=== PATIENT | female | born 1980 | race Caucasian/White ===

== ENCOUNTER 2021-10-23 09:11 | Emergency (ER) | payer OTHER ==
--- NOTE | 2021-10-23 09:57 | ERPHSYRPT ---
- History of Present Illness Time Seen by Provider: 10/23/21 09:50 Source: patient Exam Limitations: no limitations Patient Subjective Stated Complaint: " I was walking up the stairs trying to get my cat and I twisted my foot and injuried it. I also fell on . Triage Nursing Assessment: . Physician History: Patient is a 41-year-old female presents to our ED for evaluation of left foot and left knee pain. Patient states that she was chasing her kittens up the stairs when she twisted her foot and knee. Injury occurred just prior to arrival. Pain described as an ache that is localized. No radiation. Pain worse with weightbearing. Pain improved with rest. No other injuries reported. No BHT or LOC. No neck pain. Cervical spine cleared clinically. Patient otherwise healthy. She voices no other complaints concerns at this time. Method of Injury: twisted Occurred: just prior to arrival Quality: aching Severity of Pain-Max: moderate Severity of Pain-Current: mild Lower Extremities Pain: knee: left, foot: left Modifying Factors: Improves With: movement Associated Symptoms: none Allergies/Adverse Reactions: sulfamethoxazole [From Bactrim] Allergy (Severe, Verified 10/23/21 09:47) trimethoprim [From Bactrim] Allergy (Severe, Verified 10/23/21 09:47) ciprofloxacin [From Cipro] Adverse Reaction (Intermediate, Verified 10/23/21 09:47) Home Medications: Buspirone HCl [Buspar] 15 mg PO BID 10/23/21 [History] Escitalopram Oxalate 10 mg [Lexapro 10 MG] 20 mg PO DAILY 10/23/21 [History] Loratadine 10 mg [Claritin 10 mg] 10 mg PO DAILY 10/23/21 [History] Metoprolol Succinate 50 mg PO HS 10/23/21 [History] Hx Tetanus, Diphtheria Vaccination/Date Given: No Hx Influenza Vaccination/Date Given: No Hx Pneumococcal Vaccination/Date Given: No Immunizations Up to Date: No Travel Risk - International Travel Have you traveled outside of the country in past 3 weeks: No - Coronavirus Screening Are you exhibiting any of the following symptoms?: No Close contact with a COVID-19 positive Pt in past 14-21 Days: No - Vaccine Status Have you recieved a Covid-19 vaccination: No - Review of Systems Constitutional: No Symptoms, No Fever, No Chills Eyes: No Symptoms Ears, Nose, & Throat: No Symptoms Respiratory: No Symptoms, No Cough, No Dyspnea Cardiac: No Symptoms, No Chest Pain, No Edema, No Syncope Abdominal/Gastrointestinal: No Symptoms, No Abdominal Pain, No Nausea, No Vomiting, No Diarrhea Genitourinary Symptoms: No Symptoms, No Dysuria Musculoskeletal: No Symptoms, No Back Pain, No Neck Pain Skin: No Symptoms, No Rash Neurological: No Symptoms, No Dizziness, No Focal Weakness, No Sensory Changes Psychological: No Symptoms Endocrine: No Symptoms Hematologic/Lymphatic: No Symptoms Immunological/Allergic: No Symptoms All Other Systems: Reviewed and Negative - Past Medical History Pertinent Past Medical History: Yes Cardiac History: Hypertension Psycho-Social History: Anxiety, Depression - Past Surgical History Past Surgical History: Yes Female Surgical History: Dilation & Curettage, Tubal Ligation - Social History Smoking Status: Current every day smoker Exposure to second hand smoke: No Drug Use: none Patient Lives Alone: Yes - Female History Hx Last Menstrual Period: 10/22/21 Hx Now: No - Nursing Vital Signs Nursing Vital Signs: Initial Vital Signs Temperature 97.7 F 10/23/21 09:42 Pulse Rate 82 10/23/21 09:42 Respiratory Rate 16 10/23/21 09:42 Blood Pressure 150/93 10/23/21 09:42 O2 Sat by Pulse Oximetry 96 10/23/21 09:42 Pain Scale Pain Intensity 8 - Physical Exam General Appearance: no apparent distress, alert Eyes, Ears, Nose, Throat Exam: moist mucous membranes Neck Exam: non-tender, supple Cardiovascular/Respiratory Exam: chest non-tender, normal breath sounds, regular rate/rhythm, no respiratory distress Gastrointestinal/Abdominal Exam: non-tender, guarding Back Exam: normal inspection, No vertebral tenderness Hips Exam: bilateral: non-tender, normal inspection, normal range of motion, no evidence of injury Legs Exam: bilateral leg: non-tender, normal inspection, normal range of motion, no evidence of injury Knees Exam: right knee: non-tender, normal inspection, normal range of motion, no evidence of injury, left knee: pain, soft tissue tenderness, other (Patient has discomfort along the anterior all lateral aspect of her left knee. Overlying soft tissue intact. No signs of trauma. Extremities neurovascular intact distally. Compartments are soft.) Ankle Exam: bilateral ankle: non-tender, normal inspection, normal range of motion, no evidence of injury Foot Exam: right foot: non-tender, normal inspection, normal range of motion, no evidence of injury, left foot: pain, soft tissue tenderness, swelling, other (Patient has tenderness to palpation on the dorsum of the left foot. There is a small area of hyperemia. No obvious swelling or deformity. Compartments are soft. Cap refill less than 2 seconds. PT DP pulse palpable.) Neuro/Tendon Exam: normal sensation, normal motor functions Mental Status Exam: alert, oriented x 3, cooperative Skin Exam: normal color, warm, dry SpO2 Interpretation: normal SpO2: 96 O2 Delivery: Room Air - Course Nursing assessment & vital signs reviewed: Yes - Radiology Exams Foot X-ray Interpretation: Teleradiologist Report (Small heel spurs and tiny cuboid accessory ossicle. No other bony or soft tissue abnormalities.) Knee X-ray Interpretation: Teleradiologist Report (2 view left knee demonstrates minimal medial joint space narrowing. No other bony articular or soft tissue abnormalities.) Ordered Tests: Active Orders 24 hr Category Date Time Status FOOT (MINIMUM 3 VIEWS) Stat Exams 10/23/21 09:59 Completed KNEE (1 OR 2 VIEW) Stat Exams 10/23/21 09:59 Completed Medication Summary Discontinued Medications Generic Name Dose Route Start Last Admin Trade Name Freq PRN Reason Stop Dose Admin Acetaminophen 975 mg 10/23/21 10:01 Acetaminophen 325 Mg Tablet PO 10/23/21 10:02 STAT ONE - Progress Progress: improved Progress Note: Patient reassessed. Pain improved. X-rays negative for fracture dislocations. No soft tissue abnormalities. We will provide patient with bilateral axillary crutches for comfort. No indication for further work-up at this time. Patient agrees to follow-up with her primary care doctor within 48 hours for reevaluation. Portions of this note were created with voice recognition technology. There may be grammatical, spelling, punctuation or sound alike errors 10/23/21 10:11 Counseled pt/family regarding: diagnosis, need for follow-up, rad results - Departure Departure Disposition: Home Clinical Impression: Foot sprain, Knee sprain Condition: Stable Critical Care Time: No Additional Instructions: Discharge/Care Plan ERNSTCITLALY was seen on 11/22/21 in the Emergency Room. The patient was counseled regarding Diagnosis,Lab results, Imaging studies, need for follow up and when to return to the Emergency Room. Prescriptions given: Discharge Note I have spoken with the patient and/or caregivers. I have explained the patient's condition, diagnosis and treatment plan based on the information available to me at this time. I have answered the patient's and/or caregiver's questions and addressed any concerns. The patient and/or caregivers have as good understanding of the patient's diagnosis, condition and treatment plan as can be expected at this point. The vital signs have been stable. The patient's condition is stable and appropriate for discharge from the emergency department. The patient will pursue further outpatient evaluation with the primary care physician or other designated or consulting physician as outlined in the d ischarge instructions. The patient and/or caregivers are agreeable to this plan of care and follow-up instructions have been explained in detail. The patient and/or caregivers have received these instruction. The patient/and or caregivers are aware that any significant change in condition or worsening of symptoms should prompt an immediate return to this or the closest emergency department or call 911.
[2021-10-23] MEDS ORDERED: TYLENOL 325 MG PO ONE (10:01)
--- NOTE | 2021-10-23 10:06 | XRAY ---
Indication: Pain following twisting injury. Comparison: None 2 view left knee demonstrates minimal medial joint space narrowing. No other bony, articular, or soft tissue abnormalities.
--- NOTE | 2021-10-23 10:08 | XRAY ---
Indication: Pain following twisting injury. Comparison: None 3 nonweightbearing views left foot demonstrates small heel spurs and tiny cuboid accessory ossicle. No other bony, articular, or soft tissue abnormalities.
[2021-10-23] MEDS ORDERED: TYLENOL 325 MG ONE (10:28)
[2021-10-23 17:11] VITALS: BP 150/93; PULSE 82; O2SAT 96
== END 2021-10-23 10:51 | disposition home or self-care (01) ==
LOC: ED 09:11
DX: S93.602A Unspecified sprain of left foot, initial encounter (principal); S83.92XA Sprain of unspecified site of left knee, initial encounter; W18.43XA Slipping, tripping and stumbling without falling due to stepping from one level to another, initial encounter; Y93.02 Activity, running; Y92.009 Unspecified place in unspecified non-institutional (private) residence as the place of occurrence of the external cause; I10 Essential (primary) hypertension; Z72.0 Tobacco use
CPT/HCPCS: 73560; 73630; 99283; A9270-GY

== ENCOUNTER 2022-01-01 14:32 | Emergency (ER) | payer OTHER ==
[2022-01-01 14:44] VITALS: O2SAT 96
[2022-01-01] MEDS ORDERED: Sodium Chloride 0.9% 1000 ML 1,000 ML IV STA ×2 (14:46)
[2022-01-01] MEDS ORDERED: Zofran 4 MG/2 ML VIAL IV ONE (14:47)
[2022-01-01] MEDS ORDERED: Zofran 4 MG/2 ML VIAL ONE (14:48)
[2022-01-01] MEDS ORDERED: Sodium Chloride 0.9% 1000 ML 2,000 ML ONE (14:49)
--- NOTE | 2022-01-01 16:08 | ERPHSYRPT ---
- History of Present Illness Historian: patient Exam Limitations: no limitations Patient Subjective Stated Complaint: " I was diagnosed with Covid on the and I have had diarrhea, nausea, and vomiting since shortly after being diagnosed with Covid. " Triage Nursing Assessment: Pt presents to ER with complaints of nausea, vomiting, or diarrhea. Pt states s/sx been present for the past couple of weeks since being dx with Covid. Pt is alert and oriented x3. Skin is pink, warm, and dry. Respirations are easy. Lungs clear thoughout. Bowel sounds present. Pt states diarrhea has been like liquid. Pt complains of continuous nausea and vomtiing when attempting to eat meals. Physician History: 41 yo wf diagnosed w CV19 on 12/23/21 presents w N/V/D. Pt still has a mild cough but denies coryza. Fever/BERRY resolved earlier in the disease process. Melena/hematochezia/hematemesis/dysuria/hematuria are all denied. Timing/Duration: other (12/23/21) Quality: other (No pain) Abdominal Pain Onset Location: other (No pain) Pain Radiation: no radiation Severity of Pain-Max: none Severity of Pain-Current: none Modifying Factors: Improves With: coughing, vomiting Associated Symptoms: diarrhea, fatigue, nausea, vomiting, weakness, No back, No chest pain, No diaphoresis, No fever/chills, No headache, No heartburn, No neck pain, No rash, No shortness of breath, No syncope Previous symptoms: no prior history Allergies/Adverse Reactions: sulfamethoxazole [From Bactrim] Allergy (Severe, Verified 01/01/22 14:44) trimethoprim [From Bactrim] Allergy (Severe, Verified 01/01/22 14:44) ciprofloxacin [From Cipro] Adverse Reaction (Intermediate, Verified 01/01/22 14:44) Home Medications: Buspirone HCl [Buspar] 15 mg PO BID 10/23/21 [History] Escitalopram Oxalate 10 mg [Lexapro 10 MG] 20 mg PO DAILY 10/23/21 [History] Loratadine 10 mg [Claritin 10 mg] 10 mg PO DAILY 10/23/21 [History] Metoprolol Succinate 50 mg PO HS 10/23/21 [History] Hx Tetanus, Diphtheria Vaccination/Date Given: No Hx Influenza Vaccination/Date Given: No Hx Pneumococcal Vaccination/Date Given: No Immunizations Up to Date: No Travel Risk - International Travel Have you traveled outside of the country in past 3 weeks: No - Coronavirus Screening Are you exhibiting any of the following symptoms?: Yes Symptoms: Vomiting/Diarrhea Close contact with a COVID-19 positive Pt in past 14-21 Days: Yes - Vaccine Status Have you recieved a Covid-19 vaccination: No - Review of Systems Constitutional: No Symptoms, Fatigue, Lethargy, Weakness Eyes: No Symptoms Ears, Nose, & Throat: No Symptoms Respiratory: No Symptoms, Cough Cardiac: No Symptoms Abdominal/Gastrointestinal: No Symptoms, Nausea, Vomiting, Diarrhea Genitourinary Symptoms: No Symptoms Musculoskeletal: No Symptoms Skin: No Symptoms Neurological: No Symptoms Psychological: No Symptoms Endocrine: No Symptoms Hematologic/Lymphatic: No Symptoms Immunological/Allergic: No Symptoms - Past Medical History Pertinent Past Medical History: Yes Cardiac History: Hypertension Psycho-Social History: Anxiety, Depression - Past Surgical History Past Surgical History: Yes Female Surgical History: Dilation & Curettage, Tubal Ligation - Social History Smoking Status: Never smoker Exposure to second hand smoke: No Drug Use: none Patient Lives Alone: No Significant Family History: no pertinent family hx - Female History Hx Last Menstrual Period: 12/23/21 Hx Now: No - Nursing Vital Signs Nursing Vital Signs: Initial Vital Signs Temperature 96.4 F 01/01/22 14:38 Pulse Rate 72 01/01/22 14:38 Respiratory Rate 16 01/01/22 14:38 Blood Pressure 174/88 01/01/22 14:38 O2 Sat by Pulse Oximetry 96 01/01/22 14:38 Pain Scale Pain Intensity 0 Hypertensive - Physical Exam General Appearance: no apparent distress Eye Exam: PERRL/EOMI, eyes nml inspection Ears, Nose, Throat Exam: normal ENT inspection, TMs normal, pharynx normal, moist mucous membranes Neck Exam: normal inspection, non-tender, supple, full range of motion, No meningismus, No mass, No Brudzinski, No Kernig's, No carotid bruit Respiratory Exam: normal breath sounds, lungs clear, airway intact, No respiratory distress Cardiovascular Exam: regular rate/rhythm, normal heart sounds, normal peripheral pulses, No murmur Gastrointestinal/Abdomen Exam: soft, normal bowel sounds, No tenderness Back Exam: normal inspection, normal range of motion, No CVA tenderness, No vertebral tenderness Extremity Exam: normal inspection, normal range of motion Neurologic Exam: alert, oriented x 3, cooperative, wire inserter II-XII nml as tested, normal mood/affect, nml cerebellar function, nml station & gait, sensation nml, No motor deficits, No sensory deficit Skin Exam: normal color, warm, dry Lymphatic Exam: No adenopathy SpO2 Interpretation: normal SpO2: 96 O2 Delivery: Room Air - Course Nursing assessment & vital signs reviewed: Yes Ordered Tests: Medication Summary Discontinued Medications Generic Name Dose Route Start Last Admin Trade Name Freq PRN Reason Stop Dose Admin Sodium Chloride 1,000 mls @ 999 mls/hr 01/01/22 14:46 01/01/22 16:12 Sodium Chloride 0.9% 1000 Ml IV 01/01/22 15:46 Infused .Q1H1M STA Infusion Sodium Chloride 1,000 mls @ 999 mls/hr 01/01/22 14:46 01/01/22 17:27 Sodium Chloride 0.9% 1000 Ml IV 01/01/22 15:46 Infused .Q1H1M STA Infusion Sodium Chloride Confirm 01/01/22 14:49 Sodium Chloride 0.9% 1000 Ml Administered 01/01/22 14:50 Dose 2,000 mls @ ud .ROUTE .STK-MED ONE Ondansetron HCl 4 mg 01/01/22 14:47 01/01/22 14:50 Ondansetron Hcl 4 Mg/2 Ml Vial IV 01/01/22 14:48 4 mg STAT ONE Administration Ondansetron HCl Confirm 01/01/22 14:48 Ondansetron Hcl 4 Mg/2 Ml Vial Administered 01/01/22 14:49 Dose 4 mg .ROUTE .STK-MED ONE - Progress Progress: improved Progress Note: 01/01/22 16:42 2L NS bolus/4mg IV Zofran w improvement Counseled pt/family regarding: diagnosis, need for follow-up - Departure Departure Disposition: Home Clinical Impression: COVID-19 Condition: Stable Critical Care Time: No Referrals: CHELE CHANDRA MD [Primary Care Provider] - Follow up/PCP as directed Instructions: Nausea and Vomiting, Adult (DC), Coronavirus Disease 2019 (COVID- 19) (DC) Additional Instructions: Fluids Zofran for nausea/vomiting Follow up with your family MD Return to ER as needed Prescriptions: ondansetron HCL [Zofran] 4 mg SL Q4-6HPRN PRN #10 tablet PRN Reason: Nausea/Vomiting
[2022-01-01 16:30] VITALS: BP 157/100
[2022-01-01 16:31] VITALS: PULSE 62
== END 2022-01-01 17:25 | disposition home or self-care (01) ==
LOC: ED 14:32
DX: U07.1 COVID-19 (principal); R11.2 Nausea with vomiting, unspecified; R19.7 Diarrhea, unspecified; R05.9 Cough, unspecified; R53.83 Other fatigue; I10 Essential (primary) hypertension; Z79.899 Other long term (current) drug therapy
CPT/HCPCS: 36000; 96360; 96374; 99284; J2405

== ENCOUNTER 2022-03-12 13:49 | Emergency (ER) | payer OTHER ==
--- NOTE | 2022-03-12 13:53 | ERPHSYRPT ---
- History of Present Illness Time Seen by Provider: 03/12/22 13:53 Source: patient Exam Limitations: no limitations Physician History: This is a 41-year-old morbidly obese white female who has a history of hypertension, anxiety and depression and presents with a headache and facial flushing that is worsened over the last 2 to 3 days. She took her blood pressure at home and most recently, she had a systolic blood pressure in the 150s and a diastolic blood pressure just over 100 mm per mercury. She was concerned that her blood pressure was getting too high so she came in for evaluation. The headache she is describing is mild but present. It is generalized in location. It is not the worst headache she is ever had. On my initial evaluation of her her systolic blood pressure was 142 and diastolic blood pressure was in the 70s. Timing/Duration: day(s) (3) Severity: mild Associated Symptoms: headaches Allergies/Adverse Reactions: sulfamethoxazole [From Bactrim] Allergy (Severe, Verified 03/12/22 14:04) trimethoprim [From Bactrim] Allergy (Severe, Verified 03/12/22 14:04) ciprofloxacin [From Cipro] Adverse Reaction (Intermediate, Verified 03/12/22 14:04) Home Medications: Buspirone HCl [Buspar] 15 mg PO BID 10/23/21 [History] Escitalopram Oxalate 10 mg [Lexapro 10 MG] 20 mg PO DAILY 10/23/21 [History] Loratadine 10 mg [Claritin 10 mg] 10 mg PO DAILY 10/23/21 [History] Metoprolol Succinate 50 mg PO HS 10/23/21 [History] Hx Tetanus, Diphtheria Vaccination/Date Given: No Hx Influenza Vaccination/Date Given: No Hx Pneumococcal Vaccination/Date Given: No Travel Risk - International Travel Have you traveled outside of the country in past 3 weeks: No - Coronavirus Screening Are you exhibiting any of the following symptoms?: No Close contact with a COVID-19 positive Pt in past 14-21 Days: No - Vaccine Status Have you recieved a Covid-19 vaccination: No - Review of Systems Constitutional: No Symptoms Eyes: No Symptoms Ears, Nose, & Throat: No Symptoms Respiratory: No Symptoms Cardiac: No Symptoms Abdominal/Gastrointestinal: No Symptoms Genitourinary Symptoms: No Symptoms Musculoskeletal: No Symptoms Skin: No Symptoms Neurological: Headache Psychological: No Symptoms Endocrine: No Symptoms Hematologic/Lymphatic: No Symptoms Immunological/Allergic: No Symptoms All Other Systems: Reviewed and Negative - Past Medical History Pertinent Past Medical History: Yes Cardiac History: Hypertension Psycho-Social History: Anxiety, Depression - Past Surgical History Past Surgical History: Yes Female Surgical History: Dilation & Curettage, Tubal Ligation - Social History Smoking Status: Never smoker Exposure to second hand smoke: No Drug Use: none Patient Lives Alone: No Significant Family History: no pertinent family hx - Nursing Vital Signs Nursing Vital Signs: Initial Vital Signs Temperature 97.4 F 03/12/22 13:58 Pulse Rate 75 03/12/22 13:58 Respiratory Rate 16 03/12/22 13:58 Blood Pressure 158/97 03/12/22 13:58 O2 Sat by Pulse Oximetry 96 03/12/22 13:58 Pain Scale Pain Intensity 5 - Physical Exam General Appearance: no apparent distress, alert, anxiety, obese Eye Exam: PERRL/EOMI, eyes nml inspection Ears, Nose, Throat Exam: normal ENT inspection, moist mucous membranes Neck Exam: normal inspection, non-tender, supple, full range of motion Respiratory Exam: normal breath sounds, lungs clear, airway intact, No chest tenderness, No respiratory distress Cardiovascular Exam: regular rate/rhythm, normal heart sounds, normal peripheral pulses Gastrointestinal/Abdomen Exam: soft, normal bowel sounds, No tenderness Pelvic Exam: not done Rectal Exam: not done Back Exam: normal inspection, normal range of motion, No CVA tenderness, No vertebral tenderness Extremity Exam: normal inspection, normal range of motion, pelvis stable Neurologic Exam: alert, oriented x 3, cooperative, home aide II-XII nml as tested, normal mood/affect, nml cerebellar function, nml station & gait, sensation nml Skin Exam: normal color, warm, dry Lymphatic Exam: No adenopathy SpO2 Interpretation: normal O2 Delivery: Room Air - Course Nursing assessment & vital signs reviewed: Yes EKG Interpreted by Me: RATE (71), Sinus Rhythm, NORMAL AXIS, NORMAL INTERVALS, NORMAL QRS, Non-specific ST Changes, Other (No acute ischemic changes on today's EKG.) Ordered Tests: Active Orders 24 hr Category Date Time Status Practice Or Student Teacher STAT Care 03/12/22 14:06 Active EKG-ER Only STAT Care 03/12/22 14:06 Active IV Insertion STAT Care 03/12/22 14:06 Active HEAD WITHOUT CONTRAST [CT] Stat Exams 03/12/22 14:07 Completed CBC W DIFF Stat Lab 03/12/22 14:19 Completed CMP Stat Lab 03/12/22 14:19 Completed UA W/RFX UR CULTURE Stat Lab 03/12/22 14:46 Completed Medication Summary Discontinued Medications Generic Name Dose Route Start Last Admin Trade Name Raymundo PRN Reason Stop Dose Admin Acetaminophen 650 mg 03/12/22 14:43 03/12/22 15:10 Acetaminophen 325 Mg Tablet PO 03/12/22 14:44 650 mg STAT STA Administration Acetaminophen Confirm 03/12/22 15:10 Acetaminophen 325 Mg Tablet Administered 03/12/22 15:11 Dose 650 mg .ROUTE .STK-MED ONE Insulin Human Regular 5 unit 03/12/22 16:22 03/12/22 16:51 Insulin Regular, Human 1 Unit IV 03/12/22 16:23 5 unit STAT ONE Administration Insulin Human Regular Confirm 03/12/22 16:39 Insulin Regular, Human 1 Unit Administered 03/12/22 16:40 Dose 5 unit .ROUTE .STK-MED ONE Ketorolac Tromethamine 30 mg 03/12/22 14:43 03/12/22 15:10 Ketorolac Tromethamine 30 Mg/Ml Inj IV 03/12/22 14:44 30 mg STAT ONE Administration Ketorolac Tromethamine Confirm 03/12/22 15:09 Ketorolac Tromethamine 30 Mg/Ml Inj Administered 03/12/22 15:10 Dose 30 mg .ROUTE .STK-MED ONE Lab/Rad Data: Laboratory Result Diagrams 03/12/22 14:19 03/12/22 14:19 Laboratory Results 03/12/22 03/12/22 03/12/22 Range/Units 14:46 14:19 14:19 WBC 10.2 (4.0-10.5) K/mm3 RBC 4.92 (4.1-5.4) M/mm3 Hgb 14.9 (12.0-16.0) gm/dl Hct 43.0 (35-47) % MCV 87.4 (78-100) fl MCH 30.3 (26-32) pg MCHC 34.7 (32-36) g/dl RDW 13.3 (11.5-14.0) % Plt Count 313 (150-450) K/mm3 MPV 10.2 (7.5-11.0) fl Gran % 68.8 H (36.0-66.0) % Eos # (Auto) 0.18 (0-0.5) Absolute Lymphs (auto) 2.44 (1.0-4.6) Absolute Monos (auto) 0.52 (0.0-1.3) Lymphocytes % 24.0 (24.0-44.0) % Monocytes % 5.1 (0.0-12.0) % Eosinophils % 1.8 (0.00-5.0) % Basophils % 0.3 (0.0-0.4) % Absolute Granulocytes 7.00 H (1.4-6.9) Basophils # 0.03 (0-0.4) Sodium 135 L (137-145) mmol/L Potassium 3.9 (3.5-5.1) mmol/L Chloride 100 (98-107) mmol/L Carbon Dioxide 22 (22-30) mmol/L Anion Gap 17.1 H (5-15) MEQ/L BUN 11 (7-17) mg/dL Creatinine 0.58 (0.52-1.04) mg/dL Estimated GFR > 60.0 ML/MIN Glucose 399 H (74-106) mg/dL Calcium 9.3 (8.4-10.2) mg/dL Total Bilirubin 0.80 (0.2-1.3) mg/dL AST 67 H (14-36) U/L ALT 53 H (0-35) U/L Alkaline Phosphatase 127 H (38-126) U/L Serum Total Protein 7.5 (6.3-8.2) g/dL Albumin 4.2 (3.5-5.0) g/dL Urine Color LT.YELLOW (YELLOW) Urine Appearance CLEAR (CLEAR) Urine pH 6.0 (5-6) Ur Specific [place] 1.020 (1.005-1.025) Urine Protein NEGATIVE (Negative) Urine Ketones NEGATIVE (NEGATIVE) Urine Blood NEGATIVE (0-5) Swapnil/ul Urine Nitrite NEGATIVE (NEGATIVE) Urine Bilirubin NEGATIVE (NEGATIVE) Urine Urobilinogen 0.2 (0-1) mg/dL Ur Leukocyte Esterase NEGATIVE (NEGATIVE) Urine WBC (Auto) NONE (0-5) /HPF Urine RBC (Auto) NONE (0-2) /HPF U Epithel Cells (Auto) NONE (FEW) /HPF Urine Culture Reflexed NO (NO) Urine Glucose 500 (NEGATIVE) mg/dL - Progress Progress: improved Progress Note: 03/12/22 14:42 Patient states that she drove herself into the hospital and does not want any narcotic medication or sedating medication. 03/12/22 14:44 CAT scan of the head without contrast is a normal CAT scan. There is no acute intracranial abnormalities. Counseled pt/family regarding: lab results, diagnosis, need for follow-up - Departure Departure Disposition: Home Clinical Impression: Headache, Hyperglycemia Condition: Stable Critical Care Time: No Referrals: CHELE CHANDRA MD [Primary Care Provider] - Follow up/PCP as directed Additional Instructions: Drink plenty of fluids. Avoid sugar. Keep your appointment with Dr. Chandra tomorrow for further evaluation and management. Continue your medications as prescribed
[2022-03-12 14:25] LABS: Basophil (Absolute #) 0.03 (0-0.4); Eosinophil % 1.8 % (0.00-5.0); Eosinophil (Absolute #) 0.18 (0-0.5); Hemoglobin 14.9 gm/dl (12.0-16.0); Lymphocyte (Absolute #) 2.44 (1.0-4.6); Mean Cell Volume 87.4 fl (78-100); Mean Corpuscular Hemoglobin 30.3 pg (26-32); Mean Corpuscular Hgb Concent. 34.7 g/dl (32-36); Mean Platelet Volume 10.2 fl (7.5-11.0); Monocyte (Absolute #) 0.52 (0.0-1.3); Monocytes % 5.1 % (0.0-12.0); Neutrophil % 68.8 % (36.0-66.0); Platelet Count 313 K/mm3 (150-450); Red Blood Count 4.92 M/mm3 (4.1-5.4); Red Cell Distribution Width 13.3 % (11.5-14.0); White Blood Count 10.2 K/mm3 (4.0-10.5)
--- NOTE | 2022-03-12 14:41 | XRAY ---
Indication: Headache. Hypertension. Multiple contiguous axial images obtained through the head without contrast. Comparison: None Normal appearing brain parenchyma, ventricles, and bony calvarium. Bony calvarium intact. Visualized paranasal sinuses and mastoid air cells are clear. Impression: Normal CT head without contrast exam.
[2022-03-12] MEDS ORDERED: TORAdol 30 mg Injection IV ONE (14:43)
[2022-03-12] MEDS ORDERED: TYLENOL 325 MG PO STA (14:43)
[2022-03-12] MEDS ORDERED: TORAdol 30 mg Injection ONE (15:09)
[2022-03-12] MEDS ORDERED: TYLENOL 325 MG ONE (15:10)
[2022-03-12 15:40] LABS: ALBUMIN 4.2 g/dL (3.5-5.0); ALKALINE PHOSPHATASE 127 U/L (38-126); ANION GAP 17.1 MEQ/L (5-15); BLOOD UREA NITROGEN 11 mg/dL (7-17); CHLORIDE 100 mmol/L (98-107); Calcium 9.3 mg/dL (8.4-10.2); Carbon Dioxide 22 mmol/L (22-30); Creatinine 1 0.58 mg/dL (0.52-1.04); EST GLOMERULAR FILTRATION RATE > 60.0 ML/MIN; Glucose 399 mg/dL (74-106); Potassium 3.9 mmol/L (3.5-5.1); SGOT/AST 67 U/L (14-36); SGPT/ALT 53 U/L (0-35); SODIUM 135 mmol/L (137-145); Total Protein 7.5 g/dL (6.3-8.2)
[2022-03-12] MEDS ORDERED: HUMULIN R IV ONE (16:22)
[2022-03-12] MEDS ORDERED: HUMULIN R ONE (16:39)
[2022-03-12 16:57] LABS: Appearance CLEAR (CLEAR); Leukocyte Esterase NEGATIVE (NEGATIVE); Nitrite NEGATIVE (NEGATIVE)
[2022-03-12 17:00] LABS: Bilirubin NEGATIVE (NEGATIVE); Blood NEGATIVE Ery/ul (0-5); Glucose 500 mg/dL (NEGATIVE); Ketones NEGATIVE (NEGATIVE); Protein,Urine Dip NEGATIVE (Negative); Urobilinogen 0.2 mg/dL (0-1)
[2022-03-12 17:01] LABS: ADD URINE CULTURE? NO (NO)
[2022-03-12 17:25] VITALS: BP 163/101; PULSE 76; O2SAT 96
== END 2022-03-12 17:30 | disposition home or self-care (01) ==
LOC: ED 13:49
DX: R73.9 Hyperglycemia, unspecified (principal); R51.9 Headache, unspecified; I10 Essential (primary) hypertension; Z79.899 Other long term (current) drug therapy
CPT/HCPCS: 36000; 36415; 70450; 80053; 81001; 82947; 85025; 93005; 93041; 96374; 96375; 99284; J1815; J1885; A9270-GY

== ENCOUNTER 2022-04-24 19:06 | Observation (INO) | payer OTHER ==
[2022-04-24] MEDS ORDERED: Sodium Chloride 0.9% 1000 ML 1,000 ML IV STA ×2 (19:39→21:38)
[2022-04-24] MEDS ORDERED: Sodium Chloride 0.9% 1000 ML 0 ML ONE (19:45)
[2022-04-24 19:56] LABS: Absolute Neutrophil Ct (ANC) 13.55 x10^3/uL (1.4-6.9); Basophil (Absolute #) 0.07 x10^3/uL (0-0.4); Eosinophil % 0.8 % (0.00-5.0); Eosinophil (Absolute #) 0.14 x10^3/uL (0-0.5); Hematocrit 44.7 % (35-47); Hemoglobin 15.3 g/dL (12.0-16.0); Lymphocytes % 13.8 % (24.0-44.0); Mean Cell Volume 89.8 fL (78-100); Mean Corpuscular Hemoglobin 30.7 pg (26-32); Mean Corpuscular Hgb Concent. 34.2 g/dL (32-36); Monocytes % 6.3 % (0.0-12.0); Neutrophil % 78.3 % (36.0-66.0); Platelet Count 388 x10^3/uL (150-450); Red Blood Count 4.98 x10^6/uL (4.1-5.4); Red Cell Distribution Width 13.6 % (11.5-14.0); White Blood Count 17.3 x10^3/uL (4.0-10.5)
[2022-04-24] MEDS ORDERED: Compazine 10 MG/2 ML IV ONE (19:58)
[2022-04-24] MEDS ORDERED: Compazine 10 MG/2 ML ONE (19:59)
[2022-04-24 20:18] LABS: ALBUMIN 4.8 g/dL (3.5-5.0); ANION GAP 19.2 MEQ/L (5-15); Creatinine 1 2.13 mg/dL (0.52-1.04); EST GLOMERULAR FILTRATION RATE 27.1 ML/MIN; Potassium 4.1 mmol/L (3.5-5.1); Total Protein 8.2 g/dL (6.3-8.2)
--- NOTE | 2022-04-24 20:40 | ERPHSYRPT ---
- History of Present Illness Time Seen by Provider: 04/24/22 19:30 Source: patient Exam Limitations: no limitations Patient Subjective Stated Complaint: pt states "I have been vomiting and having diarrhea since yesterday. The last time I vomited was this morning." Triage Nursing Assessment: pt ambulated into the er; pt is axo x4; c/o N/V/D; pt states 7/10 pain to head; abd is round, soft, non tender; hyperactive bowel sounds in all quads; mucus membranes pink and moist; vitals wnl Physician History: Patient is a 41-year-old female presents emergency department for evaluation of nausea and vomiting. Symptoms started yesterday. Patient unable to tolerate p.o. Patient now has a headache. Headache rated 7 out of 10. Headache is global. No trauma. No fever. No neck pain. No photophobia. No meningeal signs. Symptoms are mild to moderate in intensity. No specific worsening improving factors. Patient voices no other complaints or concerns at this time. Timing/Duration: yesterday Severity: moderate Modifying Factors: Improves With: nothing Associated Symptoms: other (Headache) Allergies/Adverse Reactions: sulfamethoxazole [From Bactrim] Allergy (Severe, Verified 04/24/22 19:10) trimethoprim [From Bactrim] Allergy (Severe, Verified 04/24/22 19:10) ciprofloxacin [From Cipro] Adverse Reaction (Intermediate, Verified 04/24/22 19:10) Home Medications: Buspirone HCl [Buspar] 15 mg PO BID 10/23/21 [History] Escitalopram Oxalate [Lexapro 10 MG] 20 mg PO DAILY 10/23/21 [History] Loratadine 10 mg [Claritin 10 mg] 10 mg PO DAILY 10/23/21 [History] Metoprolol Succinate 50 mg PO HS 10/23/21 [History] Hx Tetanus, Diphtheria Vaccination/Date Given: Yes Hx Influenza Vaccination/Date Given: No Hx Pneumococcal Vaccination/Date Given: No Travel Risk - International Travel Have you traveled outside of the country in past 3 weeks: No - Coronavirus Screening Are you exhibiting any of the following symptoms?: Yes Symptoms: Vomiting/Diarrhea, Headaches/Body Aches/Fatigue Close contact with a COVID-19 positive Pt in past 14-21 Days: No - Vaccine Status Have you recieved a Covid-19 vaccination: No - Review of Systems Constitutional: No Symptoms, No Fever, No Chills Eyes: No Symptoms Ears, Nose, & Throat: No Symptoms Respiratory: No Symptoms, No Cough, No Dyspnea Cardiac: No Symptoms, No Chest Pain, No Edema, No Syncope Abdominal/Gastrointestinal: No Symptoms, No Abdominal Pain, No Nausea, No V omiting, No Diarrhea Genitourinary Symptoms: No Symptoms, No Dysuria Musculoskeletal: No Symptoms, No Back Pain, No Neck Pain Skin: No Symptoms, No Rash Neurological: No Symptoms, No Dizziness, No Focal Weakness, No Sensory Changes Psychological: No Symptoms Endocrine: No Symptoms Hematologic/Lymphatic: No Symptoms Immunological/Allergic: No Symptoms All Other Systems: Reviewed and Negative - Past Medical History Pertinent Past Medical History: Yes Cardiac History: Hypertension Endocrine Medical History: Diabetes Type II Psycho-Social History: Anxiety, Depression - Past Surgical History Past Surgical History: Yes Female Surgical History: Dilation & Curettage, Tubal Ligation - Social History Smoking Status: Former smoker Exposure to second hand smoke: No Drug Use: none Patient Lives Alone: No Significant Family History: no pertinent family hx - Female History Hx Now: No - Nursing Vital Signs Nursing Vital Signs: Initial Vital Signs Temperature 97 F 04/24/22 19:18 Pulse Rate 89 04/24/22 19:18 Respiratory Rate 16 04/24/22 19:18 Blood Pressure 94/61 04/24/22 19:18 O2 Sat by Pulse Oximetry 97 04/24/22 19:18 Pain Scale Pain Intensity 0 - Physical Exam General Appearance: no apparent distress, alert Eye Exam: PERRL/EOMI, eyes nml inspection Ears, Nose, Throat Exam: normal ENT inspection, TMs normal, pharynx normal, moist mucous membranes Neck Exam: normal inspection, non-tender, supple, full range of motion Respiratory Exam: normal breath sounds, lungs clear, No respiratory distress Cardiovascular Exam: regular rate/rhythm, normal heart sounds, normal peripheral pulses Gastrointestinal/Abdomen Exam: soft, normal bowel sounds, No tenderness, No mass Back Exam: normal inspection, normal range of motion, No CVA tenderness, No vertebral tenderness Extremity Exam: normal inspection, normal range of motion, pelvis stable Neurologic Exam: alert, oriented x 3, cooperative, normal mood/affect, nml cerebellar function, nml station & gait, sensation nml, No motor deficits Skin Exam: normal color, warm, dry, No rash Lymphatic Exam: No adenopathy SpO2 Interpretation: normal SpO2: 96 O2 Delivery: Room Air - Course Nursing assessment & vital signs reviewed: Yes Ordered Tests: Active Orders 24 hr Category Date Time Status Still Runner STAT Care 04/24/22 19:40 Active IV Insertion STAT Care 04/24/22 19:39 Active Pulse Oximetry (ED) STAT Care 04/24/22 19:39 Active CBC Stat Lab 04/24/22 23:44 Completed CBC W DIFF Stat Lab 04/24/22 19:40 Completed CMP Stat Lab 04/24/22 19:40 Completed CMP Stat Lab 04/24/22 22:34 Completed CULTURE,URINE Stat Lab 04/24/22 19:44 Received TROPONIN Q3H Lab 04/24/22 19:40 Completed TROPONIN Q3H Lab 04/24/22 22:34 Completed UA W/RFX CULTURE Stat Lab 04/24/22 19:44 Completed Transfer Order Routine Transfer 04/25/22 Ordered Medication Summary Discontinued Medications Generic Name Dose Route Start Last Admin Trade Name Raymundo PRN Reason Stop Dose Admin Sodium Chloride 1,000 mls @ 999 mls/hr 04/24/22 19:39 04/24/22 20:52 Sodium Chloride 0.9% 1000 Ml IV 04/24/22 20:39 Infused .Q1H1M STA Infusion Sodium Chloride Confirm 04/24/22 19:45 Sodium Chloride 0.9% 1000 Ml Administered 04/24/22 19:46 Dose 1,000 mls @ ud .ROUTE .STK-MED ONE Sodium Chloride 1,000 mls @ 999 mls/hr 04/24/22 21:38 04/24/22 23:15 Sodium Chloride 0.9% 1000 Ml IV 04/24/22 22:38 Infused .Q1H1M STA Infusion Sodium Chloride Confirm 04/24/22 21:38 Sodium Chloride 0.9% 1000 Ml Administered 04/24/22 21:39 Dose 1,000 mls @ ud .ROUTE .STK-MED ONE Sodium Chloride Confirm 04/24/22 21:41 Sodium Chloride 0.9% 1000 Ml Administered 04/24/22 21:42 Dose 1,000 mls @ ud .ROUTE .STK-MED ONE Ceftriaxone Sodium/Dextrose 1 g in 50 mls @ 100 mls/hr 04/25/22 00:18 04/25/22 01:27 Rocephin 1 Gm-D5w 50 Ml Bag IV 04/25/22 00:47 Infused STAT STA Infusion Ceftriaxone Sodium/Dextrose Confirm 04/25/22 00:43 Rocephin 1 Gm-D5w 50 Ml Bag Administered 04/25/22 00:44 Dose 1 g in 50 mls @ ud IV .Digital Ally ONE Prochlorperazine Edisylate 10 mg 04/24/22 19:58 04/24/22 20:00 Prochlorperazine Edisylate 10 Mg/2 Ml Vial IV 04/24/22 19:59 10 mg STAT ONE Administration Prochlorperazine Edisylate Confirm 04/24/22 19:59 Prochlorperazine Edisylate 10 Mg/2 Ml Vial Administered 04/24/22 20:00 Dose 10 mg .ROUTE .VIDDIX-Intellution ONE Lab/Rad Data: Laboratory Result Diagrams 04/24/22 23:44 04/24/22 22:34 Laboratory Results 04/25/22 04/24/22 04/24/22 Range/Units Unknown 23:44 22:34 WBC 14.0 H (4.0-10.5) x10^3/uL RBC 4.62 (4.1-5.4) x10^6/uL Hgb 14.2 (12.0-16.0) g/dL Hct 42.3 (35-47) % MCV 91.6 (78-100) fL MCH 30.7 (26-32) pg MCHC 33.6 (32-36) g/dL RDW 13.4 (11.5-14.0) % Plt Count 295 (150-450) x10^3/uL MPV 9.6 (7.5-11.0) fL Gran % (36.0-66.0) % Immature Gran % (Auto) (0.00-0.4) % Nucleat RBC Rel Count (0.00-0.1) % Eos # (Auto) (0-0.5) x10^3/uL Immature Gran # (Auto) (0.00-0.03) x10^3u/L Absolute Lymphs (auto) (1.0-4.6) x10^3/uL Absolute Monos (auto) (0.0-1.3) x10^3/uL Absolute Nucleated RBC (0.00-0.01) x10^3u/L Lymphocytes % (24.0-44.0) % Monocytes % (0.0-12.0) % Eosinophils % (0.00-5.0) % Basophils % (0.0-0.4) % Absolute Granulocytes (1.4-6.9) x10^3/uL Basophils # (0-0.4) x10^3/uL Sodium 137 (137-145) mmol/L Potassium 4.2 (3.5-5.1) mmol/L Chloride 105 (98-107) mmol/L Carbon Dioxide 22 (22-30) mmol/L Anion Gap 14.2 (5-15) MEQ/L BUN 19 H (7-17) mg/dL Creatinine 1.72 H (0.52-1.04) mg/dL Estimated GFR 34.7 ML/MIN Glucose 77 (74-106) mg/dL Calcium 8.6 (8.4-10.2) mg/dL Total Bilirubin 0.80 (0.2-1.3) mg/dL AST 30 (14-36) U/L ALT 38 H (0-35) U/L Alkaline Phosphatase 71 (38-126) U/L Troponin I (0.000-0.034) ng/mL Serum Total Protein 6.7 (6.3-8.2) g/dL Albumin 3.8 (3.5-5.0) g/dL Urinalys Dipstick Clnc Urine Color (YELLOW) Urine Appearance (CLEAR) Urine pH (5-6) Ur Specific [place] (1.005-1.025) POC Urine Protein Conf (Negative) Urine Ketones (NEGATIVE) Urine Nitrite (NEGATIVE) Urine Bilirubin (NEGATIVE) Urine Urobilinogen (0-1) mg/dL Urine Leukocytes (NEGATIVE) Urine WBC (Auto) (0-5) /HPF Urine RBC (Auto) (0-2) /HPF U Epithel Cells (Auto) (FEW) /HPF Urine Bacteria (Auto) (NEGATIVE) /HPF Urine RBC (0-5) Swapnil/ul Other Casts (Auto) (NEGATIVE) /LPF Urine Mucus (Auto) (NEGATIVE) /HPF Ur Culture Indicated? Urine Glucose (NEGATIVE) mg/dL Influenza Type A Ag NEGATIVE (NEGATIVE) Influenza Type B Ag NEGATIVE (NEGATIVE) RSV (PCR) NEGATIVE (Negative) SARS-CoV-2 (PCR) NEGATIVE (NEGATIVE) 04/24/22 04/24/22 04/24/22 Range/Units 22:34 19:44 19:40 WBC (4.0-10.5) x10^3/uL RBC (4.1-5.4) x10^6/uL Hgb (12.0-16.0) g/dL Hct (35-47) % MCV (78-100) fL MCH (26-32) pg MCHC (32-36) g/dL RDW (11.5-14.0) % Plt Count (150-450) x10^3/uL MPV (7.5-11.0) fL Gran % (36.0-66.0) % Immature Gran % (Auto) (0.00-0.4) % Nucleat RBC Rel Count (0.00-0.1) % Eos # (Auto) (0-0.5) x10^3/uL Immature Gran # (Auto) (0.00-0.03) x10^3u/L Absolute Lymphs (auto) (1.0-4.6) x10^3/uL Absolute Monos (auto) (0.0-1.3) x10^3/uL Absolute Nucleated RBC (0.00-0.01) x10^3u/L Lymphocytes % (24.0-44.0) % Monocytes % (0.0-12.0) % Eosinophils % (0.00-5.0) % Basophils % (0.0-0.4) % Absolute Granulocytes (1.4-6.9) x10^3/uL Basophils # (0-0.4) x10^3/uL Sodium (137-145) mmol/L Potassium (3.5-5.1) mmol/L Chloride (98-107) mmol/L Carbon Dioxide (22-30) mmol/L Anion Gap (5-15) MEQ/L BUN (7-17) mg/dL Creatinine (0.52-1.04) mg/dL Estimated GFR ML/MIN Glucose (74-106) mg/dL Calcium (8.4-10.2) mg/dL Total Bilirubin (0.2-1.3) mg/dL AST (14-36) U/L ALT (0-35) U/L Alkaline Phosphatase (38-126) U/L Troponin I < 0.012 < 0.012 (0.000-0.034) ng/mL Serum Total Protein (6.3-8.2) g/dL Albumin (3.5-5.0) g/dL Urinalys Dipstick Clnc MAIN LAB Urine Color YELLOW (YELLOW) Urine Appearance CLEAR (CLEAR) Urine pH 5.0 (5-6) Ur Specific [place] 1.010 (1.005-1.025) POC Urine Protein Conf 30 (Negative) Urine Ketones NEGATIVE (NEGATIVE) Urine Nitrite NEGATIVE (NEGATIVE) Urine Bilirubin NEGATIVE (NEGATIVE) Urine Urobilinogen 0.2 (0-1) mg/dL Urine Leukocytes TRACE (NEGATIVE) Urine WBC (Auto) 6-10 (0-5) /HPF Urine RBC (Auto) 3-5 (0-2) /HPF U Epithel Cells (Auto) RARE (FEW) /HPF Urine Bacteria (Auto) MODERATE (NEGATIVE) /HPF Urine RBC NEGATIVE (0-5) Swapnil/ul Other Casts (Auto) 5-10 (NEGATIVE) /LPF Urine Mucus (Auto) SLIGHT (NEGATIVE) /HPF Ur Culture Indicated? YES Urine Glucose NEGATIVE (NEGATIVE) mg/dL Influenza Type A Ag (NEGATIVE) Influenza Type B Ag (NEGATIVE) RSV (PCR) (Negative) SARS-CoV-2 (PCR) (NEGATIVE) 04/24/22 04/24/22 Range/Units 19:40 19:40 WBC 17.3 H (4.0-10.5) x10^3/uL RBC 4.98 (4.1-5.4) x10^6/uL Hgb 15.3 (12.0-16.0) g/dL Hct 44.7 (35-47) % MCV 89.8 (78-100) fL MCH 30.7 (26-32) pg MCHC 34.2 (32-36) g/dL RDW 13.6 (11.5-14.0) % Plt Count 388 (150-450) x10^3/uL MPV 10.0 (7.5-11.0) fL Gran % 78.3 H (36.0-66.0) % Immature Gran % (Auto) 0.4 (0.00-0.4) % Nucleat RBC Rel Count 0.0 (0.00-0.1) % Eos # (Auto) 0.14 (0-0.5) x10^3/uL Immature Gran # (Auto) 0.07 H (0.00-0.03) x10^3u/L Absolute Lymphs (auto) 2.40 (1.0-4.6) x10^3/uL Absolute Monos (auto) 1.10 (0.0-1.3) x10^3/uL Absolute Nucleated RBC 0.00 (0.00-0.01) x10^3u/L Lymphocytes % 13.8 L (24.0-44.0) % Monocytes % 6.3 (0.0-12.0) % Eosinophils % 0.8 (0.00-5.0) % Basophils % 0.4 (0.0-0.4) % Absolute Granulocytes 13.55 H (1.4-6.9) x10^3/uL Basophils # 0.07 (0-0.4) x10^3/uL Sodium 137 (137-145) mmol/L Potassium 4.1 (3.5-5.1) mmol/L Chloride 100 (98-107) mmol/L Carbon Dioxide 22 (22-30) mmol/L Anion Gap 19.2 H (5-15) MEQ/L BUN 20 H (7-17) mg/dL Creatinine 2.13 H (0.52-1.04) mg/dL Estimated GFR 27.1 ML/MIN Glucose 102 (74-106) mg/dL Calcium 10.0 (8.4-10.2) mg/dL Total Bilirubin 1.00 (0.2-1.3) mg/dL AST 36 (14-36) U/L ALT 44 H (0-35) U/L Alkaline Phosphatase 90 (38-126) U/L Troponin I (0.000-0.034) ng/mL Serum Total Protein 8.2 (6.3-8.2) g/dL Albumin 4.8 (3.5-5.0) g/dL Urinalys Dipstick Clnc Urine Color (YELLOW) Urine Appearance (CLEAR) Urine pH (5-6) Ur Specific [place] (1.005-1.025) POC Urine Protein Conf (Negative) Urine Ketones (NEGATIVE) Urine Nitrite (NEGATIVE) Urine Bilirubin (NEGATIVE) Urine Urobilinogen (0-1) mg/dL Urine Leukocytes (NEGATIVE) Urine WBC (Auto) (0-5) /HPF Urine RBC (Auto) (0-2) /HPF U Epithel Cells (Auto) (FEW) /HPF Urine Bacteria (Auto) (NEGATIVE) /HPF Urine RBC (0-5) Swapnil/ul Other Casts (Auto) (NEGATIVE) /LPF Urine Mucus (Auto) (NEGATIVE) /HPF Ur Culture Indicated? Urine Glucose (NEGATIVE) mg/dL Influenza Type A Ag (NEGATIVE) Influenza Type B Ag (NEGATIVE) RSV (PCR) (Negative) SARS-CoV-2 (PCR) (NEGATIVE) - Progress Progress: improved Progress Note: Patient acute renal failure treated. Creatinine improved. Dr. Chandra unavailable. On-call doctor Cecilia accepts admission on Dr. Chandra's behalf. Plan of care discussed with patient. She agrees to admission [facility] for further evaluation and treatment. Patient will be treated for dehydration and acute renal injury and a urinary tract infection. IV fluids infused. A dose of Rocephin infused as well. Portions of this note were created with voice recognition technology. There may be grammatical, spelling, punctuation or sound alike errors 04/25/22 04:37 Discussed with : Obed Will see patient in: hospital (observation) Counseled pt/family regarding: lab results, diagnosis - Departure Departure Disposition: Observation Clinical Impression: Leukocytosis, High anion gap metabolic acidosis, Acute renal injury, Dehydration, Nausea vomiting and diarrhea, UTI (urinary tract infection) Condition: Stable Critical Care Time: No Referrals: CHELE CHANDRA MD [Primary Care Provider] - Follow up/PCP as directed
[2022-04-24 21:19] LABS: Bacteria MODERATE /HPF (NEGATIVE); Epithelial Cells RARE /HPF (FEW); Mucus SLIGHT /HPF (NEGATIVE)
[2022-04-24 21:20] LABS: Appearance CLEAR (CLEAR); Bilirubin NEGATIVE (NEGATIVE); Glucose NEGATIVE (NEGATIVE); Ketones NEGATIVE (NEGATIVE); RBC NEGATIVE Ery/ul (0-5)
[2022-04-24 21:21] LABS: Dipstick done @ ? MAIN LAB; Nitrite NEGATIVE (NEGATIVE); Protein,Urine Dip 30 (Negative); Urobilinogen 0.2 mg/dL (0-1)
[2022-04-24 21:22] LABS: Urine Cultured Indicated? YES
[2022-04-24] MEDS ORDERED: Sodium Chloride 0.9% 1000 ML 1,000 ML ONE ×2 (21:38→21:41)
[2022-04-24 23:33] LABS: ALBUMIN 3.8 g/dL (3.5-5.0); ANION GAP 14.2 MEQ/L (5-15); BILIRUBIN,TOTAL 0.8 mg/dL (0.2-1.3); Calcium 8.6 mg/dL (8.4-10.2); Creatinine 1 1.72 mg/dL (0.52-1.04); EST GLOMERULAR FILTRATION RATE 34.7 ML/MIN; Potassium 4.2 mmol/L (3.5-5.1); Total Protein 6.7 g/dL (6.3-8.2)
[2022-04-24 23:49] LABS: Hematocrit 42.3 % (35-47); Hemoglobin 14.2 g/dL (12.0-16.0); Mean Cell Volume 91.6 fL (78-100); Mean Corpuscular Hemoglobin 30.7 pg (26-32); Mean Corpuscular Hgb Concent. 33.6 g/dL (32-36); Mean Platelet Volume 9.6 fL (7.5-11.0); Platelet Count 295 x10^3/uL (150-450); Red Blood Count 4.62 x10^6/uL (4.1-5.4); Red Cell Distribution Width 13.4 % (11.5-14.0)
[2022-04-25] MEDS ORDERED: ROCEPHIN 1 Gm-D5w 50 ml Bag** 1 G/50 ML IVPB IV STA (00:18)
[2022-04-25] MEDS ORDERED: ROCEPHIN 1 Gm-D5w 50 ml Bag** 1 G/50 ML IVPB IV ONE (00:43)
[2022-04-25 04:08] LABS: INFLUENZA A NEGATIVE (NEGATIVE); INFLUENZA B NEGATIVE (NEGATIVE); RESPIRATORY SYNCTIAL VIRUS NEGATIVE (Negative); SARS-CoV-2 Xpert Express NEGATIVE (NEGATIVE)
[2022-04-25] MEDS ORDERED: Sodium Chloride 0.9% 1000 ML 1,000 ML IV SCH (06:15)
[2022-04-25] MEDS ORDERED: MORPHINE SULFATE 2 MG INJ IV PRN (06:15)
[2022-04-25 10:13] LABS: ALKALINE PHOSPHATASE 79 U/L (38-126); ANION GAP 11.3 MEQ/L (5-15); BLOOD UREA NITROGEN 15 mg/dL (7-17); CHLORIDE 109 mmol/L (98-107); Calcium 8.9 mg/dL (8.4-10.2); Carbon Dioxide 21 mmol/L (22-30); Creatinine 1 0.84 mg/dL (0.52-1.04); EST GLOMERULAR FILTRATION RATE > 60.0 ML/MIN; Glucose 84 mg/dL (74-106); Potassium 3.8 mmol/L (3.5-5.1); SGOT/AST 33 U/L (14-36); SGPT/ALT 39 U/L (0-35); SODIUM 138 mmol/L (137-145); Total Protein 7.2 g/dL (6.3-8.2)
[2022-04-25] MEDS ORDERED: NON-FORMULARY ITEM (Semaglutide [Ozempic] 1 MG/0.75 ML Pen.Injctr) SQ SCH (10:15)
[2022-04-25] MEDS ORDERED: MEDICATION INTERVENTION MC SCH (10:30)
[2022-04-25] MEDS ORDERED: CLARITIN 10 MG PO SCH (11:00)
[2022-04-25] MEDS ORDERED: Zestril 20 MG PO SCH (11:00)
[2022-04-25] MEDS ORDERED: BUSPAR 5 MG PO SCH (11:00)
[2022-04-25] MEDS ORDERED: Pepcid 20 MG PO SCH (11:00)
[2022-04-25] MEDS ORDERED: Glucophage 500 MG PO SCH (11:00)
[2022-04-25] MEDS: Amaryl 2 MG PO SCH ×2 (11:33→11:36)
[2022-04-25 13:33] LABS: 027 TOX PROD PRESUMPTIVE NEGATIVE (NEGATIVE); TOXIGENIC C. DIFF ORG NEGATIVE (NEGATIVE)
[2022-04-25 17:03] VITALS: BP 113/57; PULSE 82; O2SAT 96
[2022-04-25] MEDS ORDERED: ROCEPHIN 1 Gm-D5w 50 ml Bag** 1 G/50 ML IVPB IV SCH (22:00)
[2022-04-25] MEDS ORDERED: Requip 0.5 MG PO SCH (22:00)
[2022-04-25] MEDS ORDERED: Toprol Xl 50 MG PO SCH (22:00)
[2022-04-26] MEDS ORDERED: NON-FORMULARY ITEM (Cetirizine Hcl [Zyrtec] 10 MG Capsule) PO SCH (10:00)
--- NOTE | 2022-05-07 21:27 | PCM.SSS ---
History of Present Illness - Chief Complaint Chief Complaint: Acute renal injury, dehydration Date: 04/25/22 History of Present Illness: is a 41 year old female. Presented to ER with n/v/d the day prior upon presentation she was dehydrated with acute kidney injury, she was subsequently placed in hospital for iv hydration. - Review of Systems Constitutional: Fatigue, No Fever, No Chills Eyes: No Symptoms Ears, Nose, & Throat: No Symptoms Respiratory: No Cough, No Short Of Breath Cardiac: No Chest Pain, No Edema, No Syncope Abdominal/Gastrointestinal: Nausea, Vomiting, Diarrhea, No Abdominal Pain Genitourinary Symptoms: No Dysuria Musculoskeletal: No Back Pain, No Neck Pain Skin: No Rash Neurological: No Dizziness, No Focal Weakness, No Sensory Changes Psychological: No Symptoms Endocrine: No Symptoms Hematologic/Lymphatic: No Symptoms Immunological/Allergic: No Symptoms Medications & Allergies Home Medications: Home Medication List Buspirone HCl 5 mg [Buspar 5 mg] 15 mg PO BID 04/25/22 [History Confirmed 04/25/22] Cetirizine HCl [Zyrtec] 10 mg PO DAILY 04/25/22 [History Confirmed 04/25/22] Escitalopram Oxalate [Lexapro] 20 mg PO DAILY 04/25/22 [History Confirmed 04/25/22] Famotidine 20 mg [Pepcid 20 MG] 40 mg PO DAILY 04/25/22 [History Confirmed 04/25/22] Lisinopril 20 mg [Zestril 20 MG] 20 mg PO DAILY 04/25/22 [History Confirmed 04/25/22] Metformin HCl 500 mg [Glucophage 500 MG] 500 mg PO DAILY 04/25/22 [History Confirmed 04/25/22] Metoprolol Succinate 50 mg [Toprol Xl 50 MG] 50 mg PO QHS 04/25/22 [History Confirmed 04/25/22] Ropinirole HCl 0.5 mg [Requip 0.5 MG] 1 mg PO QHS 04/25/22 [History Confirmed 04/25/22] Semaglutide [Ozempic] 0.5 mg SQ WEEKLY 04/25/22 [History Confirmed 04/25/22] Allergies/Adverse Reactions: Allergies Allergy/AdvReac Type Severity Reaction Status Date / Time sulfamethoxazole Allergy Severe Verified 04/24/22 19:10 [From Bactrim] trimethoprim [From Bactrim] Allergy Severe Verified 04/24/22 19:10 ciprofloxacin [From Cipro] AdvReac Intermediate Verified 04/24/22 19:10 - Past Medical History Past Medical History: Yes Neurological History: No Pertinent History ENT History: No Pertinent History Cardiac History: Hypertension Respiratory History: No Pertinent History Endocrine Medical History: Diabetes Type II Musculoskelatal History: No Pertinent History GI Medical History: No Pertinent History History: No Pertinent History Pyscho-Social History: Anxiety, Depression Reproductive Disorders: No Pertinent History - Female History Hx Last Menstrual Period: March 2022 Are you now?: No - Past Surgical History Past Surgical History: Yes Neuro Surgical History: No Pertinent History Cardiac History: No Pertinent History Respiratory Surgery: No Pertinent History GI Surgical History: No Pertinent History Genitourinary Surgical Hx: No Pertinent History Musculskeletal Surgical Hx: No Pertinent History Female Surgical History: Dilation & Curettage, Tubal Ligation - Social History Smoking Status: Former smoker Exposure to second hand smoke: No Alcohol: None Drug Use: none Significant Family History: no pertinent family hx - Physical Exam General Appearance: no apparent distress, alert Neurologic Exam: alert, oriented x 3, cooperative, normal mood/affect, No motor deficits Eye Exam: PERRL/EOMI, eyes nml inspection Ears, Nose, Throat Exam: normal ENT inspection, TMs normal, pharynx normal, moist mucous membranes Neck Exam: normal inspection, non-tender, supple, full range of motion Respiratory Exam: normal breath sounds, lungs clear, No respiratory distress Cardiovascular Exam: regular rate/rhythm, normal heart sounds, normal peripheral pulses Gastrointestinal/Abdomen Exam: soft, normal bowel sounds, No tenderness, No mass Back Exam: normal inspection, normal range of motion, No CVA tenderness, No vertebral tenderness Extremity Exam: normal inspection, normal range of motion, pelvis stable Skin Exam: normal color, warm, dry, No rash Lymphatic Exam: No adenopathy Results - Labs Lab/Micro Results: Microbiology 04/24/22 19:44 Urine Culture - Final Urine, Void MIXED MIRIAM; 3 OR MORE TYPES. NO PREDOMINANT ORGANISM. NO FURTHER WORKUP. PLEASE RESUBMIT IF CLINICALLY INDICATED. Assessment/Plan (1) Acute renal injury Status: Acute Code(s): N17.9 - ACUTE KIDNEY FAILURE, UNSPECIFIED (2) Dehydration Status: Acute Assessment & Plan: aggressive iv hydration Code(s): E86.0 - DEHYDRATION Hospital Summary - Hospital Course Hospital Course: Pt. admitted for iv hydration, feeling much better by the next am, after advancing diet with good toleration it was felt the patient was stable for discharge to home. - Vitals & Intake/Output Vital Signs: Vital Signs Temperature 98.9 F 04/25/22 16:00 Pulse Rate 82 04/25/22 16:00 Respiratory Rate 12 04/25/22 16:00 Blood Pressure 113/57 04/25/22 16:00 O2 Sat by Pulse Oximetry 96 04/25/22 16:00 - Lab Result Diagrams: 04/24/22 23:44 04/25/22 09:34 Micro Results-Entire Visit: Microbiology 04/24/22 19:44 Urine Culture - Final Urine, Void MIXED MIRIAM; 3 OR MORE TYPES. NO PREDOMINANT ORGANISM. NO FURTHER WORKUP. PLEASE RESUBMIT IF CLINICALLY INDICATED. - Discharge Discharge Date: 04/25/22 Disposition: Home, Self-Care Condition: Stable Prescriptions: Continue Semaglutide [Ozempic] 0.5 mg SQ WEEKLY Metformin HCl 500 mg [Glucophage 500 MG] 500 mg PO DAILY Lisinopril 20 mg [Zestril 20 MG] 20 mg PO DAILY Cetirizine HCl [Zyrtec] 10 mg PO DAILY Metoprolol Succinate 50 mg [Toprol Xl 50 MG] 50 mg PO QHS Ropinirole HCl 0.5 mg [Requip 0.5 MG] 1 mg PO QHS Famotidine 20 mg [Pepcid 20 MG] 40 mg PO DAILY Buspirone HCl 5 mg [Buspar 5 mg] 15 mg PO BID Escitalopram Oxalate [Lexapro] 20 mg PO DAILY Instructions: Dehydration, Adult (DC) Follow up with: CHELE CHANDRA MD [Primary Care Provider] - 05/03/22 1:30 pm Forms: Discharge Instructions
== END 2022-04-25 16:54 | disposition home or self-care (01) ==
LOC: ED 19:06 → MED SURG 04-25 05:21
PROVIDERS: ADMIT General Practice; ATTEND Family Medicine
DX: N17.9 Acute kidney failure, unspecified (principal); E86.0 Dehydration; N39.0 Urinary tract infection, site not specified; R11.2 Nausea with vomiting, unspecified; R19.7 Diarrhea, unspecified; E11.9 Type 2 diabetes mellitus without complications; I10 Essential (primary) hypertension; Z79.899 Other long term (current) drug therapy; Z20.828 Contact with and (suspected) exposure to other viral communicable diseases
CPT/HCPCS: 0241U; 36000; 36415; 80053; 81015; 84484; 85025; 85027; 87086; 87493; 93041; 93268; 94760; 96360; 96374; 99285; G0378; J0696; A9270-GY

== ENCOUNTER 2022-07-23 12:17 | Emergency (ER) | payer OTHER ==
[2022-07-23 14:01] LABS: INFLUENZA A NEGATIVE (NEGATIVE); INFLUENZA B NEGATIVE (NEGATIVE); RESPIRATORY SYNCTIAL VIRUS NEGATIVE (Negative); SARS-CoV-2 Xpert Express NEGATIVE (NEGATIVE)
[2022-07-23 14:22] LABS: Appearance CLEAR (CLEAR); Bilirubin NEGATIVE (NEGATIVE); Dipstick done @ ? MAIN LAB; Glucose NEGATIVE (NEGATIVE); Ketones NEGATIVE (NEGATIVE); Nitrite NEGATIVE (NEGATIVE); Ph 5.5 (5-6); Protein,Urine Dip NEGATIVE (Negative); RBC NEGATIVE Ery/ul (0-5); Specific Gravity 1.015 (1.005-1.025); Urobilinogen 0.2 mg/dL (0-1)
[2022-07-23 14:23] LABS: Epithelial Cells RARE /HPF (FEW); Mucus SLIGHT /HPF (NEGATIVE); RBC 0-2 /HPF (0-2); Urine Cultured Indicated? NO; WBC 0-2 /HPF (0-5)
[2022-07-23 14:24] LABS: Absolute Neutrophil Ct (ANC) 6.75 x10^3/uL (1.4-6.9); Basophil (Absolute #) 0.07 x10^3/uL (0-0.4); Eosinophil % 1.6 % (0.00-5.0); Eosinophil (Absolute #) 0.15 x10^3/uL (0-0.5); Hematocrit 39.7 % (35-47); Hemoglobin 13.1 g/dL (12.0-16.0); Lymphocyte (Absolute #) 2.17 x10^3/uL (1.0-4.6); Lymphocytes % 22.6 % (24.0-44.0); Mean Cell Volume 92.3 fL (78-100); Mean Corpuscular Hemoglobin 30.5 pg (26-32); Mean Platelet Volume 9.4 fL (7.5-11.0); Monocyte (Absolute #) 0.46 x10^3/uL (0.0-1.3); Monocytes % 4.8 % (0.0-12.0); Neutrophil % 70.1 % (36.0-66.0); Platelet Count 267 x10^3/uL (150-450); Red Cell Distribution Width 12.7 % (11.5-14.0); White Blood Count 9.6 x10^3/uL (4.0-10.5)
[2022-07-23 14:37] LABS: ANION GAP 10.9 MEQ/L (5-15); BLOOD UREA NITROGEN 13 mg/dL (7-17); CHLORIDE 105 mmol/L (98-107); Calcium 9.2 mg/dL (8.4-10.2); Carbon Dioxide 23 mmol/L (22-30); Creatinine 1 0.88 mg/dL (0.52-1.04); EST GLOMERULAR FILTRATION RATE > 60.0 ML/MIN; Glucose 88 mg/dL (74-106); Potassium 4.3 mmol/L (3.5-5.1); SODIUM 135 mmol/L (137-145)
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
--- NOTE | 2022-07-23 15:44 | XRAY ---
Exam: AP upright portable chest film from 07/23/2022. Comparison: [None.] Indication: 42-year-old female with worsening headache over the past 2 days; nausea; dizziness; flu-like symptoms. Findings: The heart size and contour are normal. The lungs are well inflated. The yarelis and mediastinal structures appear unremarkable. No air space infiltrates, vascular congestion, pneumothorax, or pleural fluid is seen. The visualized bones appear grossly intact. There is very slight convexity of the upper thoracic spine toward the left centered at T3. Impression: 1. No air space infiltrates to suggest focal pneumonia or other acute cardiopulmonary disease is seen.
[2022-07-23 16:31] VITALS: BP 146/76; PULSE 76; O2SAT 97
--- NOTE | 2022-07-24 23:41 | ERPHSYRPT ---
- History of Present Illness Time Seen by Provider: 07/23/22 12:28 Source: patient Exam Limitations: no limitations Patient Subjective Stated Complaint: PT states "I was exposed to covid a week ago and for the past couple of days I have had a horrible headache, nausea and fever." Triage Nursing Assessment: Pt presented alert and oriented X3, skin pwd. Pt ambulates with an upright steady gait, able to speak in clear full sentences pt in no apparent respiratory distress. Physician History: This is a 42 yr old pt. presenting to ED with 2 day h/o headache, fever with tmax of 101.2,cough, SOB - Reports that last night she had some frontal headache, not the worst headache of her life, denies h/o migraines, had some "black spots" that went away, reports she thought headache was due to not eating and she ate which relieved her headache , but it did come back later - This am woke up with non-productive cough, runny nose, her headache did return and fever with tmax of 101.2 - reports exposure to covid at work within the last week - has not been vaccinated - has h/o D<, anxiety and depression - denies focal weakness/dizziness/urinary s/s Timing/Duration: yesterday Fever Severity: moderate Fever Therapy SCREENING NURSE: Acetaminophen Associated Symptoms: cough, headache, muscle aches, weakness, No abdominal pain, No chest pain, No confusion, No sore throat, No stiff neck, No syncope Allergies/Adverse Reactions: sulfamethoxazole [From Bactrim] Allergy (Severe, Verified 04/24/22 19:10) trimethoprim [From Bactrim] Allergy (Severe, Verified 04/24/22 19:10) ciprofloxacin [From Cipro] Adverse Reaction (Intermediate, Verified 04/24/22 19:10) Home Medications: Buspirone HCl 5 mg [Buspar 5 mg] 15 mg PO BID 04/25/22 [History] Cetirizine HCl [Zyrtec] 10 mg PO DAILY 04/25/22 [History] Escitalopram Oxalate [Lexapro] 20 mg PO DAILY 04/25/22 [History] Famotidine 20 mg [Pepcid 20 MG] 40 mg PO DAILY 04/25/22 [History] Lisinopril 20 mg [Zestril 20 MG] 20 mg PO DAILY 04/25/22 [History] Metformin HCl 500 mg [Glucophage 500 MG] 500 mg PO DAILY 04/25/22 [History] Metoprolol Succinate 50 mg [Toprol Xl 50 MG] 50 mg PO QHS 04/25/22 [Histo ry] Ropinirole HCl 0.5 mg [Requip 0.5 MG] 1 mg PO QHS 04/25/22 [History] Semaglutide [Ozempic] 0.5 mg SQ WEEKLY 04/25/22 [History] Hx Tetanus, Diphtheria Vaccination/Date Given: Yes Hx Influenza Vaccination/Date Given: No Hx Pneumococcal Vaccination/Date Given: No Immunizations Up to Date: Yes Travel Risk - International Travel Have you traveled outside of the country in past 3 weeks: No - Coronavirus Screening Are you exhibiting any of the following symptoms?: Yes Symptoms: Fever, Headaches/Body Aches/Fatigue Close contact with a COVID-19 positive Pt in past 14-21 Days: Yes - Vaccine Status Have you recieved a Covid-19 vaccination: No - Review of Systems Constitutional: Fever, Chills, Weakness Eyes: No Discharge, No Eye Pain, No Vision Changes, No Double Vision, No Foreign Body Sensation Ears, Nose, & Throat: No Ear Pain, No Ear Discharge, No Nose Congestion, No Sinus Drainage, No Epistaxis, No Painful Swallowing Respiratory: Cough, No Dyspnea, No Dyspnea on Exertion (LOPEZ), No Wheezing Cardiac: No Chest Pain, No Edema, No Palpitations, No Syncope, No Orthopnea Abdominal/Gastrointestinal: No Abdominal Pain, No Nausea, No Vomiting, No Diarrhea, No Hematemesis, No Hematochezia, No Melena Genitourinary Symptoms: No Dysuria, No Frequency, No Hematuria Musculoskeletal: No Arthralgias, No Back Pain, No Joint Pain, No Joint Swelling Skin: No Cellulitis, No Rash Neurological: No Dizziness, No Focal Weakness, No Seizure Psychological: No Alcohol Abuse, No Drug Abuse Endocrine: No Polyuria, No Polydipsia, No Hair Changes Hematologic/Lymphatic: No Symptoms Immunological/Allergic: No Symptoms All Other Systems: Reviewed and Negative - Past Medical History Pertinent Past Medical History: Yes Neurological History: No Pertinent History ENT History: No Pertinent History Cardiac History: Hypertension Respiratory History: No Pertinent History Endocrine Medical History: Diabetes Type II Musculoskeletal History: No Pertinent History GI Medical History: No Pertinent History History: No Pertinent History Psycho-Social History: Anxiety, Depression Female Reproductive Disorders: No Pertinent History - Past Surgical History Past Surgical History: Yes Neuro Surgical History: No Pertinent History Cardiac: No Pertinent History Respiratory: No Pertinent History Gastrointestinal: No Pertinent History Genitourinary: No Pertinent History Musculoskeletal: No Pertinent History Female Surgical History: Dilation & Curettage, Tubal Ligation - Social History Smoking Status: Former smoker Exposure to second hand smoke: No Drug Use: none Patient Lives Alone: No Significant Family History: no pertinent family hx - Female History Hx Last Menstrual Period: 06/20/2022 Hx Now: No - Nursing Vital Signs Nursing Vital Signs: Initial Vital Signs Temperature 98.1 F 07/23/22 12:32 Pulse Rate 72 07/23/22 12:32 Respiratory Rate 20 07/23/22 12:32 Blood Pressure 123/73 07/23/22 12:32 O2 Sat by Pulse Oximetry 96 07/23/22 12:32 Pain Scale Pain Intensity 4 - Physical Exam General Appearance: no apparent distress Eye Exam: PERRL/EOMI, eyes nml inspection ENT Exam: normal ENT inspection, no apparent trauma, hearing grossly normal, TMs normal, pharynx normal, No nasal congestion, No pharyngeal erythema Neck Exam: normal inspection, non-tender, supple, full range of motion, No lymphadenopathy (R) Respiratory Exam: normal breath sounds, chest non-tender, lungs clear, no respiratory distress, no accessory muscle use, No accessory muscle use Cardiovascular/Chest Exam: normal heart sounds, regular rate/rhythm, murmur Gastrointestinal/Abdominal Exam: soft, non tender, no distention, no mass, no guarding, no organomegaly, normal bowel sounds Pelvic Exam: deferred Rectal Exam: deferred Extremity Exam: non-tender, normal range of motion Neurologic Exam: alert, oriented x 3, cooperative, normal mood/affect, nml station & gait Skin Exam: normal color, warm, dry Lymphatic: No adenopathy SpO2 Interpretation: normal SpO2: 97 O2 Delivery: Room Air Lab/Rad Data: Laboratory Result Diagrams 07/23/22 14:22 07/23/22 14:22 Laboratory Results 07/23/22 07/23/22 07/23/22 Range/Units 14:22 14:22 14:22 WBC 9.6 (4.0-10.5) x10^3/uL RBC 4.30 (4.1-5.4) x10^6/uL Hgb 13.1 (12.0-16.0) g/dL Hct 39.7 (35-47) % MCV 92.3 (78-100) fL MCH 30.5 (26-32) pg MCHC 33.0 (32-36) g/dL RDW 12.7 (11.5-14.0) % Plt Count 267 (150-450) x10^3/uL MPV 9.4 (7.5-11.0) fL Gran % 70.1 H (36.0-66.0) % Immature Gran % (Auto) 0.2 (0.00-0.4) % Nucleat RBC Rel Count 0.0 (0.00-0.1) % Eos # (Auto) 0.15 (0-0.5) x10^3/uL Immature Gran # (Auto) 0.02 (0.00-0.03) x10^3u/L Absolute Lymphs (auto) 2.17 (1.0-4.6) x10^3/uL Absolute Monos (auto) 0.46 (0.0-1.3) x10^3/uL Absolute Nucleated RBC 0.00 (0.00-0.01) x10^3u/L Lymphocytes % 22.6 L (24.0-44.0) % Monocytes % 4.8 (0.0-12.0) % Eosinophils % 1.6 (0.00-5.0) % Basophils % 0.7 (0.0-0.4) % Absolute Granulocytes 6.75 (1.4-6.9) x10^3/uL Basophils # 0.07 (0-0.4) x10^3/uL Sodium 135 L (137-145) mmol/L Potassium 4.3 (3.5-5.1) mmol/L Chloride 105 (98-107) mmol/L Carbon Dioxide 23 (22-30) mmol/L Anion Gap 10.9 (5-15) MEQ/L BUN 13 (7-17) mg/dL Creatinine 0.88 (0.52-1.04) mg/dL Estimated GFR > 60.0 ML/MIN Glucose 88 (74-106) mg/dL Calcium 9.2 (8.4-10.2) mg/dL Urinalys Dipstick Clnc Urine Color (YELLOW) Urine Appearance (CLEAR) Urine pH (5-6) Ur Specific [place] (1.005-1.025) POC Urine Protein Conf (Negative) Urine Ketones (NEGATIVE) Urine Nitrite (NEGATIVE) Urine Bilirubin (NEGATIVE) Urine Urobilinogen (0-1) mg/dL Urine Leukocytes (NEGATIVE) Urine WBC (Auto) (0-5) /HPF Urine RBC (Auto) (0-2) /HPF U Epithel Cells (Auto) (FEW) /HPF Urine Bacteria (Auto) (NEGATIVE) /HPF Urine RBC (0-5) Swapnil/ul Urine Mucus (Auto) (NEGATIVE) /HPF Ur Culture Indicated? Urine Glucose (NEGATIVE) mg/dL Urine HCG, Qual NEGATIVE (Negative) Influenza Type A Ag (NEGATIVE) Influenza Type B Ag (NEGATIVE) RSV (PCR) (Negative) SARS-CoV-2 (PCR) (NEGATIVE) 07/23/22 07/23/22 Range/Units 14:15 13:00 WBC (4.0-10.5) x10^3/uL RBC (4.1-5.4) x10^6/uL Hgb (12.0-16.0) g/dL Hct (35-47) % MCV (78-100) fL MCH (26-32) pg MCHC (32-36) g/dL RDW (11.5-14.0) % Plt Count (150-450) x10^3/uL MPV (7.5-11.0) fL Gran % (36.0-66.0) % Immature Gran % (Auto) (0.00-0.4) % Nucleat RBC Rel Count (0.00-0.1) % Eos # (Auto) (0-0.5) x10^3/uL Immature Gran # (Auto) (0.00-0.03) x10^3u/L Absolute Lymphs (auto) (1.0-4.6) x10^3/uL Absolute Monos (auto) (0.0-1.3) x10^3/uL Absolute Nucleated RBC (0.00-0.01) x10^3u/L Lymphocytes % (24.0-44.0) % Monocytes % (0.0-12.0) % Eosinophils % (0.00-5.0) % Basophils % (0.0-0.4) % Absolute Granulocytes (1.4-6.9) x10^3/uL Basophils # (0-0.4) x10^3/uL Sodium (137-145) mmol/L Potassium (3.5-5.1) mmol/L Chloride (98-107) mmol/L Carbon Dioxide (22-30) mmol/L Anion Gap (5-15) MEQ/L BUN (7-17) mg/dL Creatinine (0.52-1.04) mg/dL Estimated GFR ML/MIN Glucose (74-106) mg/dL Calcium (8.4-10.2) mg/dL Urinalys Dipstick Clnc MAIN LAB Urine Color YELLOW (YELLOW) Urine Appearance CLEAR (CLEAR) Urine pH 5.5 (5-6) Ur Specific [place] 1.015 (1.005-1.025) POC Urine Protein Conf NEGATIVE (Negative) Urine Ketones NEGATIVE (NEGATIVE) Urine Nitrite NEGATIVE (NEGATIVE) Urine Bilirubin NEGATIVE (NEGATIVE) Urine Urobilinogen 0.2 (0-1) mg/dL Urine Leukocytes NEGATIVE (NEGATIVE) Urine WBC (Auto) 0-2 (0-5) /HPF Urine RBC (Auto) 0-2 (0-2) /HPF U Epithel Cells (Auto) RARE (FEW) /HPF Urine Bacteria (Auto) NONE (NEGATIVE) /HPF Urine RBC NEGATIVE (0-5) Swapnil/ul Urine Mucus (Auto) SLIGHT (NEGATIVE) /HPF Ur Culture Indicated? NO Urine Glucose NEGATIVE (NEGATIVE) mg/dL Urine HCG, Qual (Negative) Influenza Type A Ag NEGATIVE (NEGATIVE) Influenza Type B Ag NEGATIVE (NEGATIVE) RSV (PCR) NEGATIVE (Negative) SARS-CoV-2 (PCR) NEGATIVE (NEGATIVE) - Progress Progress: improved, re-examined (Improved) Progress Note: 1) Flu like symptoms - Covid/flu/rsv-negative - given "seeing spots" CT head- negative - CXR- showed no acute cardiopulmonary process - CBC,CMP,UA - WNL - Discussed labs and imaging - advised alternate tylenol and motrin as needed for fever/headache. fluid hydration, OTC cough syrup, nasal saline - - Advised close f/u with pcp in am - Advised to return for any new or worsening s/s or any concern at all - Pt. voiced understanding and had no further questions. - Departure Clinical Impression: Viral upper respiratory illness Clinical Impression: (Ruled Out): Flu-like symptoms Condition: Stable Critical Care Time: No Referrals: CHELE CHANDRA MD [Primary Care Provider] - Follow up/PCP as directed Additional Instructions: Discharge/Care Plan CITLALY ERNST was seen on 07/23/22 in the Emergency Room. The patient was counseled regarding Diagnosis,Lab results, Imaging studies, need for follow up and when to return to the Emergency Room. Prescriptions given: Discharge Note I have spoken with the patient and/or caregivers. I have explained the patient's condition, diagnosis and treatment plan based on the information available to me at this time. I have answered the patient's and/or caregiver's questions and addressed any concerns. The patient and/or caregivers have as good understanding of the patient's diagnosis, condition and treatment plan as can be expected at this point. The vital signs have been stable. The patient's condition is stable and appropriate for discharge from the emergency department. The patient will pursue further outpatient evaluation with the primary care physician or other designated or consulting physician as outlined in the discharge instructions. The patient and/or caregivers are agreeable to this plan of care and follow-up instructions have been explained in detail. The patient and/or caregivers have received these instruction. The patient/and or caregivers are aware that any significant change in condition or worsening of symptoms should prompt an immediate return to this or the closest emergency department or call 911.
== END 2022-07-23 16:31 | disposition home or self-care (01) ==
LOC: ED 12:17
DX: J06.9 Acute upper respiratory infection, unspecified (principal); R50.9 Fever, unspecified; R51.9 Headache, unspecified; R05.1 Acute cough; I10 Essential (primary) hypertension; E11.9 Type 2 diabetes mellitus without complications; Z79.84 Long term (current) use of oral hypoglycemic drugs; Z79.899 Other long term (current) drug therapy; Z28.310 Unvaccinated for COVID-19; Z20.822 Contact with and (suspected) exposure to COVID-19
CPT/HCPCS: 0241U; 36415; 70450; 71045; 80048; 81015; 81025; 85025; 99283

== ENCOUNTER 2022-12-30 17:34 | Emergency (ER) | payer OTHER ==
--- NOTE | 2022-12-30 17:51 | ERPHSYRPT ---
- History of Present Illness Time Seen by Provider: 12/30/22 17:48 Source: patient Exam Limitations: no limitations Patient Subjective Stated Complaint: sore throat Triage Nursing Assessment: Patient ambulated back to ED and transferred self to bed. Patient A+O X 3. Patient's skin pink, warm and dry. Patient complains of sore throat 06/10 since . Richard throat noted to be red with white blisters. Physician History: Patient complains of sore throat 06/10 since . Richard throat noted to be red with white blisters. Timing/Duration: day(s) (3 days) Cough Quality/Degree: no cough Possible Cause: no prior episodes Associated Symptoms: fever, earache, sore throat, No facial pain, No headache, No lightheadedness, No muscle aches, No nasal congestion, No nasal drainage, No shortness of breath, No sinus infection, No wheezing Allergies/Adverse Reactions: sulfamethoxazole [From Bactrim] Allergy (Severe, Verified 12/30/22 17:38) trimethoprim [From Bactrim] Allergy (Severe, Verified 12/30/22 17:38) ciprofloxacin [From Cipro] Adverse Reaction (Intermediate, Verified 12/30/22 17 :38) Home Medications: Buspirone HCl 5 mg [Buspar 5 mg] 15 mg PO BID 04/25/22 [History] Cetirizine HCl [Zyrtec] 10 mg PO DAILY 04/25/22 [History] Escitalopram Oxalate [Lexapro] 20 mg PO DAILY 04/25/22 [History] Famotidine 20 mg [Pepcid 20 MG] 40 mg PO DAILY 04/25/22 [History] Lisinopril 20 mg [Zestril 20 MG] 20 mg PO DAILY 04/25/22 [History] Metformin HCl 500 mg [Glucophage 500 MG] 500 mg PO DAILY 04/25/22 [History] Metoprolol Succinate 50 mg [Toprol Xl 50 MG] 50 mg PO QHS 04/25/22 [History] Ropinirole HCl 0.5 mg [Requip 0.5 MG] 1 mg PO QHS 04/25/22 [History] Semaglutide [Ozempic] 0.5 mg SQ WEEKLY 04/25/22 [History] Hx Tetanus, Diphtheria Vaccination/Date Given: Yes Hx Influenza Vaccination/Date Given: No Hx Pneumococcal Vaccination/Date Given: No Immunizations Up to Date: Yes Travel Risk - International Travel Have you traveled outside of the country in past 3 weeks: No - Coronavirus Screening Are you exhibiting any of the following symptoms?: No Close contact with a COVID-19 positive Pt in past 14-21 Days: No - Vaccine Status Have you recieved a Covid-19 vaccination: No - Review of Systems Constitutional: Fever Eyes: No Symptoms Ears, Nose, & Throat: Throat Pain Respiratory: No Symptoms Cardiac: No Symptoms Abdominal/Gastrointestinal: No Symptoms Genitourinary Symptoms: No Symptoms Musculoskeletal: No Symptoms Neurological: No Symptoms Psychological: No Symptoms Endocrine: No Symptoms Hematologic/Lymphatic: No Symptoms Immunological/Allergic: No Symptoms - Past Medical History Pertinent Past Medical History: Yes Neurological History: No Pertinent History ENT History: No Pertinent History Cardiac History: Hypertension Respiratory History: No Pertinent History Endocrine Medical History: Diabetes Type II Musculoskeletal History: No Pertinent History GI Medical History: No Pertinent History History: No Pertinent History Psycho-Social History: Anxiety, Depression Female Reproductive Disorders: No Pertinent History - Past Surgical History Past Surgical History: Yes Neuro Surgical History: No Pertinent History Cardiac: No Pertinent History Respiratory: No Pertinent History Gastrointestinal: No Pertinent History Genitourinary: No Pertinent History Musculoskeletal: No Pertinent History Female Surgical History: Dilation & Curettage, Tubal Ligation - Social History Smoking Status: Former smoker Exposure to second hand smoke: No Drug Use: none Patient Lives Alone: No Significant Family History: no pertinent family hx - Female History Hx Last Menstrual Period: last week Hx Now: No - Nursing Vital Signs Nursing Vital Signs: Initial Vital Signs Temperature 97.2 F 12/30/22 17:38 Pulse Rate 79 12/30/22 17:38 Respiratory Rate 18 12/30/22 17:38 Blood Pressure 150/89 12/30/22 17:38 O2 Sat by Pulse Oximetry 98 12/30/22 17:38 Pain Scale Pain Intensity 7 - Physical Exam General Appearance: no apparent distress, alert Eye Exam: PERRL/EOMI, eyes nml inspection Ears, Nose, Throat Exam: normal ENT inspection, TMs normal, moist mucous membranes, pharyngeal erythema Neck Exam: normal inspection, non-tender, supple, full range of motion Respiratory Exam: normal breath sounds, lungs clear, No respiratory distress Cardiovascular Exam: regular rate/rhythm, normal heart sounds Gastrointestinal/Abdomen Exam: soft, No tenderness Back Exam: normal inspection, No CVA tenderness, No vertebral tenderness Extremity Exam: normal inspection, normal range of motion Neurologic Exam: alert, oriented x 3, cooperative, normal mood/affect, sensation nml, No motor deficits Skin Exam: normal color, warm, dry, No rash Lymphatic Exam: No adenopathy SpO2: 98 - Course Nursing assessment & vital signs reviewed: Yes Lab/Rad Data: Laboratory Results 12/30/22 Range/Units 17:48 Group A Strep Antibody NOT DETECTED (NEGATIVE) - Progress Progress: improved Counseled pt/family regarding: lab results, diagnosis, need for follow-up - Departure Departure Disposition: Home Clinical Impression: Acute pharyngitis, unspecified Qualifiers: Pharyngitis/tonsillitis etiology: unspecified etiology Qualified Code(s): J02.9 - Acute pharyngitis, unspecified Condition: Stable Critical Care Time: No Referrals: CHELE CHANDRA MD [Primary Care Provider] - Follow up/PCP as directed Instructions: Sore Throat, Adult (DC) Additional Instructions: Discharge/Care Plan CITLALY ERNST was seen on 12/30/22 in the Emergency Room. The patient was counseled regarding Diagnosis,Lab results, Imaging studies, need for follow up and when to return to the Emergency Room. Prescriptions given: Discharge Note I have spoken with the patient and/or caregivers. I have explained the patient's condition, diagnosis and treatment plan based on the information available to me at this time. I have answered the patient's and/or caregiver's questions and addressed any concerns. The patient and/or caregivers have as good understanding of the patient's diagnosis, condition and treatment plan as can be expected at this point. The vital signs have been stable. The patient's condition is stable and appropriate for discharge from the emergency department. The patient will pursue further outpatient evaluation with the primary care physician or other designated or consulting physician as outlined in the discharge instructions. The patient and/or caregivers are agreeable to this plan of care and follow-up instructions have been explained in detail. The patient and/or caregivers have received these instruction. The patient/and or caregivers are aware that any significant change in condition or worsening of symptoms should prompt an immediate return to this or the closest emergency department or call 911. CITLALY ERNST was seen on 12/30/22 n the Emergency Room. At that time you were treated for an emergent condition, during your visit Laboratory, Radiology and/or other procedures may have been ordered. It is very important that you follow-up with your Primary Care Physician CHELE CHANDRA within the next 24-48 hours to review your Emergency Room visit and the final results of testing that was ordered. Some test results such as Urine Cultures, Blood Cultures, and other cultures if ordered will not be finalized for 24-48 hours. If you do not have a Primary Care Provider please call the medical records department at [phone] to obtain a copy of your results or you may sign into our patient portal to obtain these results by visiting us @ [email or web address] and completing the following steps: 1. Click on the Patient Portal link 2. Click the Patient Self Enrollment Link to complete the enrollment form and entering your 3. Once the enrollment form is completed you will receive an email with a temporary ID and password at the email address you provided. 4. Next choose a user name and password. Your user name must be at least 4 characters long and your password must be at least 4 characters long. 5. Choose a security question from the list and provide your answer to the question. If you already have signed into the Health Portal you may access your Health Care Information 24/06 by the following steps: 1. Login to our website @ [email or web address] 2. Enter your original user name and password. FAQS The [facility] Health Portal is an online tool that contains your Lab Results, Radiology Reports, Visit History, Discharge Instructions and Health Summary Lab and Radiology Results will not be available for 72 hours on the portal. The Portal is a secure site, passwords are encryted and URLs are re-written so they cannot be copied and pasted. You and authorized family members are the only ones who can access your Portal. Also there is a timeout feature that protects your information if you leave the Portal page open. If you have technical difficulty please use the Contact Us link on the page this will allow you to submit any questions you have regarding the Portal or you may contact the Medical Record Department at [phone] ext [phone]. Prescriptions: Amoxicillin 500 mg Cap [Amoxil 500 mg] 500 mg PO TID #30 cap
[2022-12-30] MEDS ORDERED: Rocephin 1000 MG INJ IM ONE (18:26)
[2022-12-30] MEDS ORDERED: Rocephin 1000 MG INJ ONE (18:28)
[2022-12-30] MEDS ORDERED: XYLOCAINE 1% HCL 20 ML MDV ONE (18:28)
[2022-12-30 18:36] VITALS: O2SAT 98
[2022-12-30 18:48] VITALS: BP 140/86; PULSE 70
== END 2022-12-30 18:48 | disposition home or self-care (01) ==
LOC: ED 17:34
DX: J02.9 Acute pharyngitis, unspecified (principal); I10 Essential (primary) hypertension; E11.9 Type 2 diabetes mellitus without complications; Z79.84 Long term (current) use of oral hypoglycemic drugs; Z79.85 Long-term (current) use of injectable non-insulin antidiabetic drugs; Z79.899 Other long term (current) drug therapy; Z28.310 Unvaccinated for COVID-19
CPT/HCPCS: 87651; 96372; 99283; J0696

== ENCOUNTER 2023-10-07 16:11 | Emergency (ER) | payer OTHER ==
[2023-10-07 16:36] VITALS: BP 131/74; RESP 18; TEMP 97.6; O2SAT 97
[2023-10-07] MEDS ORDERED: PERCOCET TABLET 5/325MG PO ONE (16:53)
--- NOTE | 2023-10-07 16:57 | ERPHSYRPT ---
- History of Present Illness Time Seen by Provider: 10/07/23 16:53 Source: patient Exam Limitations: no limitations Patient Subjective Stated Complaint: pt here for low blood sugar at work, she drank oj and eat, she states she feels like she is lightheaded and has a headac he, pt started on jardiance last week Triage Nursing Assessment: pt alert, arrived per wc, resp easy, skin w/d/p, bs 153. moves all ext well, abd soft Physician History: Patient is a 43-year-old white female diabetic who presents with low blood sugar. She says she normally runs around 180-200 and she was put on Jardiance a week ago and it has been going lower and in fact went below 80 today causing her to have symptoms. On arrival after she had drank some juice and other things she was 180 when she arrived by fingerstick.Her only complaint on arrival was of a headache. Timing/Duration: today Severity: moderate Modifying Factors: Improves With: eating Allergies/Adverse Reactions: sulfamethoxazole [From Bactrim] Allergy (Severe, Verified 10/07/23 16:30) trimethoprim [From Bactrim] Allergy (Severe, Verified 10/07/23 16:30) ciprofloxacin [From Cipro] Adverse Reaction (Intermediate, Verified 10/07/23 16:30) Home Medications: Buspirone HCl 5 mg [Buspar 5 mg] 15 mg PO BID 04/25/22 [History] Cetirizine HCl [Zyrtec] 10 mg PO DAILY 04/25/22 [History] Escitalopram Oxalate [Lexapro] 20 mg PO DAILY 04/25/22 [History] Famotidine 20 mg [Pepcid 20 MG] 40 mg PO DAILY 04/25/22 [History] Metoprolol Succinate 50 mg [Toprol Xl 50 MG] 50 mg PO QHS 04/25/22 [History] Ropinirole HCl 0.5 mg [Requip 0.5 MG] 1 mg PO QHS 04/25/22 [History] Semaglutide [Ozempic] 0.5 mg SQ WEEKLY 04/25/22 [History] Atorvastatin Calcium 20 mg PO DAILY 10/07/23 [History] Cholecalciferol (Vitamin D3) [Vitamin D] 5,000 units UD 10/07/23 [History] Empagliflozin [Jardiance] 1 ea DAILY 10/07/23 [History] Hx Tetanus, Diphtheria Vaccination/Date Given: Yes Hx Influenza Vaccination/Date Given: No Hx Pneumococcal Vaccination/Date Given: No Immunizations Up to Date: Yes Travel Risk - International Travel Have you traveled outside of the country in past 3 weeks: No - Coronavirus Screening Are you exhibiting any of the following symptoms?: No Close contact with a COVID-19 positive Pt in past 14-21 Days: No - Vaccine Status Have you recieved a Covid-19 vaccination: No - Review of Systems Constitutional: No Fever, No Chills Eyes: No Symptoms Ears, Nose, & Throat: No Symptoms Respiratory: No Cough, No Dyspnea Cardiac: No Chest Pain, No Edema, No Syncope Abdominal/Gastrointestinal: No Abdominal Pain, No Nausea, No Vomiting, No Diarrhea Genitourinary Symptoms: No Dysuria Musculoskeletal: No Back Pain, No Neck Pain Skin: No Rash Neurological: No Dizziness, No Focal Weakness, No Sensory Changes Psychological: No Symptoms Endocrine: No Symptoms All Other Systems: Reviewed and Negative - Past Medical History Pertinent Past Medical History: Yes Neurological History: No Pertinent History ENT History: No Pertinent History Cardiac History: High Cholesterol, Hypertension Respiratory History: No Pertinent History Endocrine Medical History: Diabetes Type II Musculoskeletal History: No Pertinent History GI Medical History: No Pertinent History History: No Pertinent History Psycho-Social History: Anxiety, Depression Female Reproductive Disorders: No Pertinent History - Past Surgical History Past Surgical History: Yes Neuro Surgical History: No Pertinent History Cardiac: No Pertinent History Respiratory: No Pertinent History Gastrointestinal: No Pertinent History Genitourinary: No Pertinent History Musculoskeletal: No Pertinent History Female Surgical History: Dilation & Curettage, Tubal Ligation - Social History Smoking Status: Former smoker Exposure to second hand smoke: No Drug Use: none Patient Lives Alone: No Significant Family History: no pertinent family hx - Female History Hx Last Menstrual Period: sep Hx Now: No - Nursing Vital Signs Nursing Vital Signs: Initial Vital Signs Temperature 97.6 F 10/07/23 16:35 Pulse Rate 80 10/07/23 16:35 Respiratory Rate 18 10/07/23 16:35 Blood Pressure 131/74 10/07/23 16:35 O2 Sat by Pulse Oximetry 97 10/07/23 16:35 Pain Scale Pain Intensity 7 - Physical Exam General Appearance: no apparent distress, alert Eye Exam: PERRL/EOMI, eyes nml inspection Ears, Nose, Throat Exam: normal ENT inspection, TMs normal, pharynx normal, moist mucous membranes Neck Exam: normal inspection, non-tender, supple, full range of motion Respiratory Exam: normal breath sounds, lungs clear, No respiratory distress Cardiovascular Exam: regular rate/rhythm, normal heart sounds, normal peripheral pulses Gastrointestinal/Abdomen Exam: soft, normal bowel sounds, No tenderness, No mass Back Exam: normal inspection, normal range of motion, No CVA tenderness, No vertebral tenderness Extremity Exam: normal inspection, normal range of motion, pelvis stable Neurologic Exam: alert, oriented x 3, cooperative, normal mood/affect, nml cere bellar function, nml station & gait, sensation nml, No motor deficits Skin Exam: normal color, warm, dry, No rash Lymphatic Exam: No adenopathy SpO2: 97 - Course Nursing assessment & vital signs reviewed: Yes Ordered Tests: Active Orders 24 hr Category Date Time Status POCT GLUCOSE Stat Lab 10/07/23 16:29 Completed Lab/Rad Data: Laboratory Results 10/07/23 Range/Units 16:29 POC Glucometer 153 H (74 to 106) mg/dL - Progress Progress: improved Medical Desision Making - Risk of complications Low Risk: Low risk of morbidity from additional dx testing or treatment - Departure Departure Disposition: Home Clinical Impression: Hypoglycemia, Headache Condition: Stable Critical Care Time: No Referrals: CHELE CHANDRA MD [Primary Care Provider] - Follow up/PCP as directed Instructions: Low Blood Sugar, Adult (DC) Additional Instructions: Patient was instructed to not take her Jardiance.
[2023-10-07] MEDS ORDERED: PERCOCET TABLET 5/325MG ONE (17:00)
[2023-10-07 17:27] VITALS: PULSE 88
== END 2023-10-07 17:26 | disposition home or self-care (01) ==
LOC: ED 16:11
DX: E11.649 Type 2 diabetes mellitus with hypoglycemia without coma (principal); R51.9 Headache, unspecified; E78.5 Hyperlipidemia, unspecified; I10 Essential (primary) hypertension; Z79.85 Long-term (current) use of injectable non-insulin antidiabetic drugs; Z79.84 Long term (current) use of oral hypoglycemic drugs; Z79.899 Other long term (current) drug therapy; Z28.310 Unvaccinated for COVID-19
CPT/HCPCS: 82947; 99282; A9270-GY

== ENCOUNTER 2023-11-14 15:35 | Emergency (ER) | payer OTHER ==
[2023-11-14 15:43] VITALS: BP 162/86; TEMP 97.5
--- NOTE | 2023-11-14 16:20 | ERPHSYRPT ---
- History of Present Illness Time Seen by Provider: 11/14/23 16:00 Source: patient Exam Limitations: no limitations Patient Subjective Stated Complaint: pt here for dog bite to right lower arm today, she was bite by a friends dog Triage Nursing Assessment: pt alert, walked in, resp easy, skin w/d/p. has puncture wounds to lower right arm, no bleeding noted Physician History: This is a right-handed 43-year-old white female patient who prior to arrival, suffered a superficial dog bite to her right forearm. The dog was her friend's dog. Patient's tetanus status is not up-to-date. Patient is not allergic to penicillin. Patient wants to return to work. Patient has a history of hyperlipidemia, hypertension, diabetes and anxiety. Timing/Duration: today Quality: painful Severity: mild Location: extremities (Right forearm dorsal aspect) Possible Causes: other (Superficial dog bite) Associated Symptoms: denies symptoms Allergies/Adverse Reactions: sulfamethoxazole [From Bactrim] Allergy (Severe, Verified 11/14/23 15:40) trimethoprim [From Bactrim] Allergy (Severe, Verified 11/14/23 15:40) ciprofloxacin [From Cipro] Adverse Reaction (Intermediate, Verified 11/14/23 15:40) Home Medications: Buspirone HCl 5 mg [Buspar 5 mg] 15 mg PO BID 04/25/22 [History] Escitalopram Oxalate [Lexapro] 20 mg PO DAILY 04/25/22 [History] Famotidine 20 mg [Pepcid 20 MG] 40 mg PO DAILY 04/25/22 [History] Metoprolol Succinate 50 mg [Toprol Xl 50 MG] 50 mg PO QHS 04/25/22 [History] Ropinirole HCl 0.5 mg [Requip 0.5 MG] 1 mg PO QHS 04/25/22 [History] Atorvastatin Calcium 20 mg PO DAILY 10/07/23 [History] Cholecalciferol (Vitamin D3) [Vitamin D] 5,000 units UD 10/07/23 [History] Hx Tetanus, Diphtheria Vaccination/Date Given: No Hx Influenza Vaccination/Date Given: No Hx Pneumococcal Vaccination/Date Given: No Immunizations Up to Date: Yes Travel Risk - International Travel Have you traveled outside of the country in past 3 weeks: No - Coronavirus Screening Are you exhibiting any of the following symptoms?: No Close contact with a COVID-19 positive Pt in past 14-21 Days: No - Vaccine Status Have you recieved a Covid-19 vaccination: No - Review of Systems Constitutional: No Symptoms Eyes: No Symptoms Ears, Nose, & Throat: No Symptoms Respiratory: No Symptoms Cardiac: No Symptoms Abdominal/Gastrointestinal: No Symptoms Genitourinary Symptoms: No Symptoms Musculoskeletal: Injury (Superficial dog bite to the right forearm dorsal aspect) Skin: Other (Dog bite to the skin of the dorsal aspect of the right forearm with a few puncture wounds) Neurological: No Symptoms Psychological: No Symptoms Endocrine: No Symptoms Hematologic/Lymphatic: No Symptoms Immunological/Allergic: No Symptoms All Other Systems: Reviewed and Negative - Past Medical History Pertinent Past Medical History: Yes Neurological History: No Pertinent History ENT History: No Pertinent History Cardiac History: High Cholesterol, Hypertension Respiratory History: No Pertinent History Endocrine Medical History: Diabetes Type II Musculoskeletal History: No Pertinent History GI Medical History: GERD History: No Pertinent History Psycho-Social History: Anxiety, Depression Female Reproductive Disorders: No Pertinent History - Past Surgical History Past Surgical History: Yes Neuro Surgical History: No Pertinent History Cardiac: No Pertinent History Respiratory: No Pertinent History Gastrointestinal: No Pertinent History Genitourinary: No Pertinent History Musculoskeletal: No Pertinent History Female Surgical History: Dilation & Curettage, Tubal Ligation - Social History Smoking Status: Former smoker Exposure to second hand smoke: No Drug Use: none Patient Lives Alone: No Significant Family History: no pertinent family hx - Female History Hx Last Menstrual Period: 2 weeks ago Hx Now: No - Nursing Vital Signs Nursing Vital Signs: Initial Vital Signs Temperature 97.5 F 11/14/23 15:43 Pulse Rate 68 11/14/23 15:43 Respiratory Rate 18 11/14/23 15:43 Blood Pressure 162/86 11/14/23 15:43 O2 Sat by Pulse Oximetry 98 11/14/23 15:43 Pain Scale Pain Intensity 3 - Physical Exam General Appearance: no apparent distress, alert Eye Exam: PERRL/EOMI, eyes nml inspection Ears, Nose, Throat Exam: normal ENT inspection, moist mucous membranes Neck Exam: normal inspection, non-tender, supple, full range of motion Respiratory Exam: airway intact, No chest tenderness, No respiratory distress Gastrointestinal/Abdomen Exam: No tenderness Pelvic Exam: not done Rectal Exam: not done Back Exam: normal inspection, normal range of motion, No CVA tenderness, No vertebral tenderness Extremity Exam: tenderness (In the skin of the dorsal aspect of the right forearm where there is a few puncture wounds present that are not actively bleeding post dog bite.), other (No evidence of acute infection) Neurologic Exam: alert, oriented x 3, cooperative, privacy attorney II-XII nml as tested, normal mood/affect, nml cerebellar function, nml station & gait, sensation nml Skin Exam: other (See above. Dog bite puncture wounds dorsal aspect skin of right forearm) Lymphatic Exam: No adenopathy SpO2 Interpretation: normal SpO2: 98 O2 Delivery: Room Air - Course Nursing assessment & vital signs reviewed: Yes Ordered Tests: Active Orders 24 hr Category Date Time Status Wound Care STAT Care 11/14/23 16:09 Active Medication Summary Discontinued Medications Generic Name Dose Route Start Last Admin Trade Name Freq PRN Reason Stop Dose Admin Amoxicillin/Clavulanate Potassium 500 mg 11/14/23 16:55 11/14/23 16:55 Amox Tr/Potassium Clavulanate 500 Mg Tablet PO 11/14/23 16:56 500 mg STAT ONE Administration Amoxicillin/Clavulanate Potassium Confirm 11/14/23 16:59 Amox Tr/Potassium Clavulanate 500 Mg Tablet Administered 11/14/23 17:00 Dose 500 mg .ROUTE .STK-MED ONE Diphtheria/Tetanus/Acell Pertussis 0.5 ml 11/14/23 16:54 11/14/23 16:55 Tdap --Diph,Pertuss(Acell),Tet Vac/Pf 0.5 Ml Vial IM 11/14/23 16:55 0.5 ml .ONCE ONE Administration Diphtheria/Tetanus/Acell Pertussis Confirm 11/14/23 16:59 Tdap --Diph,Pertuss(Acell),Tet Vac/Pf 0.5 Ml Vial Administered 11/14/23 17:00 Dose 0.5 ml IM .STK-MED ONE - Progress Progress: unchanged Progress Note: 11/14/23 17:11 This patient's medical issue is 1 of low complexity. Level complexity in the workup performed is based on the review of the patient's past medical history, review the patient's medication list, review the patient's drug allergy list, history present illness and physical findings on examination. Patient workup does not require any laboratory radiographic studies. Patient received tetanus injection and Augmentin 500 mg. Counseled pt/family regarding: diagnosis, need for follow-up Medical Desision Making - Diagnostic Testing Diagnostic test were ordered, analyzed, and reviewed by me: No - Risk of complications The pt has a mod risk of morbidity or mortality based on: Need for prescription drug management - Departure Departure Disposition: Home Clinical Impression: Dog bite of right forearm without complication Condition: Stable Critical Care Time: No Referrals: CHELE CHANDRA MD [Primary Care Provider] - Follow up/PCP as directed Instructions: Animal Bites (DC) Additional Instructions: Keep the right forearm dog bite site clean daily with soap and water. Keep the area covered with a bandage. Do not use lotions ointments or creams. Take your antibiotics with food. Take your other medications as prescribed. Follow-up with your primary care provider for further evaluation and management. Prescriptions: Amoxicillin/Potassium Clav [Augmentin 500-125 Tablet] 1 each PO TID 7 Days #5 tablet
[2023-11-14] MEDS ORDERED: Adacel Vial IM ONE ×2 (16:54→16:59)
[2023-11-14] MEDS ORDERED: Augmentin 500-125 Tablet PO ONE (16:55)
[2023-11-14] MEDS ORDERED: Augmentin 500-125 Tablet ONE (16:59)
[2023-11-14 17:10] VITALS: PULSE 64; RESP 16
[2023-11-14 17:14] VITALS: O2SAT 98
== END 2023-11-14 17:21 | disposition home or self-care (01) ==
LOC: ED 15:35
DX: S50.871A Other superficial bite of right forearm, initial encounter (principal); W54.0XXA Bitten by dog, initial encounter; E78.5 Hyperlipidemia, unspecified; I10 Essential (primary) hypertension; E11.9 Type 2 diabetes mellitus without complications; Z79.899 Other long term (current) drug therapy; Z28.310 Unvaccinated for COVID-19; Z23 Encounter for immunization
CPT/HCPCS: 90471; 90715; 99283; A9270-GY